=== PATIENT | female | born 2000 | race Caucasian/White ===

== ENCOUNTER 2023-09-13 15:55 | Emergency (ER) | payer OTHER, SELFPAY ==
[2023-09-13 15:58] VITALS: BP 143/78; PULSE 75; RESP 16; TEMP 36.3; O2SAT 100
[2023-09-13] MEDS: LACTATED RINGERS 1,000 ML 999 ML IV CONT (16:28)
[2023-09-13] MEDS: METOCLOPRAMIDE HCL INJ 10 MG/2 ML VIAL IV PUSH (16:28)
[2023-09-13] MEDS: diphenhydrAMINE HCl INJ 50 MG/ML VIAL 25 MG IV PUSH (16:28)
--- NOTE | 2023-09-13 16:31 | ED.NAVMDI ---
HPI - Nausea/Vomiting/Diarrhea General Chief complaint: Nausea/Vomiting/Diarrhea Stated complaint: N/V 6WKS PREG Time Seen by Provider: 09/13/23 16:05 History of Present Illness HPI Narrative: Patient was about 6 weeks by dates presents here with nausea vomiting, ongoing for last 2 weeks, she will have good days and bad days, she has no abdominal pain. Related Data Allergies Allergy/AdvReac Type Severity Reaction Status Date / Time No Known Allergies Allergy Verified 09/13/23 17:52 Review of Systems Review of Systems: CONST: No fever. HEENT: No sore throat C/V: No chest pain RESP: No cough GI: Reports Nausea vomiting : No dysuria. M/S: No joint pain. SKIN: No rash. NEURO: [No headache or focal numbness or weakness] PSYCH: [No depression] Exam Narrative: EXAMINATION OF ORGAN SYSTEMS/BODY AREAS: Constitutional: Vital signs per nursing GENERAL: holding emesis back and looking very sad HEAD: Normal with no signs of head trauma. EYES: EOMI, conjunctiva normal ENT: Hearing grossly intact LUNGS: Nonlabored breathing. HEART: [Regular rate and rhythm] ABD: [Soft], [nontender to palpation] EXT: Normal range of motion SKIN: [No rashes or lesions.] NEURO: [Alert and oriented x 3. No gross focal sensory or strength deficits.] PSYCH: cooperative answering questions appropriately Course Vital Signs Vital signs: Vital Signs Temperature 97.4 F L 09/13/23 15:58 Pulse Rate 75 09/13/23 15:58 Respiratory Rate 16 09/13/23 15:58 Blood Pressure 143/78 H 09/13/23 15:58 Pulse Oximetry 100 09/13/23 15:58 Oxygen Delivery Room Air 09/13/23 15:58 Temperature 97.4 F L 09/13/23 15:58 Pulse Rate 75 09/13/23 15:58 Respiratory Rate 16 09/13/23 15:58 Blood Pressure 143/78 H 09/13/23 15:58 Pulse Oximetry 100 09/13/23 15:58 Oxygen Delivery Room Air 09/13/23 15:58 MDM - Nausea/Vomiting/Diarrhea MDM Narrative Medical decision making narrative: patient at 6 weeks presents here with nausea vomiting, she has no abdominal pain or discharge or vaginal bleeding. Labs obtained consistent with dehydration, she does have a UA consistent with UTI, she is given a dose of ceftriaxone here, Reglan and Benadryl and IV fluids for her nausea vomiting, and on re-evaluation she states that she is feeling much better, she is tolerating p.o.. I do feel she is stable for discharge at this time, she has follow-up with her OBGYN as scheduled, I have low concern for ectopic without any abdominal pain or vaginal bleeding, she is given strict return precautions and she is agreeable to this. Antibiotics started. Lab Data 09/13/23 16:20 09/13/23 16:20 Labs: Lab Results 09/13/23 09/13/23 Range/Units 16:20 16:25 WBC 12.0 H (4.5-10.0) K/mm3 RBC 4.82 (4.2-5.4) M/mm3 Hgb 14.6 (12.0-15.0) g/dL Hct 42.3 (37.0-47.0) % MCV 87.8 (80-100) fl MCH 30.3 (26-34) pg MCHC 34.5 (32-36) g/dl RDW 12.8 (11.5-14.5) % Plt Count 305 (150-375) k/mm3 MPV 9.0 (7.4-10.4) fl Immature Gran % (Auto) 0.3 (0-0.5) % Neut % (Auto) 82.3 H (45.5-73.1) % Lymph % (Auto) 11.4 L (18.3-44.2) % [place] % (Auto) 5.8 (2.6-8.5) % Eos % (Auto) 0.1 (0-4.4) % Baso % (Auto) 0.1 L (0.2-1.2) % Lymph # (Auto) 1.36 (0.9-3.2) K/mm3 [place] # (Auto) 0.7 H (0.1-0.6) K/mm3 Eos # (Auto) 0.0 (0-0.3) K/mm3 Baso # (Auto) 0.0 (0.0-0.1) K/mm3 Abs Immat Gran (auto) 0.04 H (0.00-0.031) K/mm3 Absolute Neuts (auto) 9.8 H (1.3-6.7) K/mm3 Absolute Nucleated RBC 0.000 (0.0-0.012) K/mm3 Nucleated RBC % 0.0 (0.0-0.2) % Sodium 136 L (137-145) mmol/L Potassium 3.6 (3.4-5.0) mmol/L Chloride 105 (98-107) mmol/L Carbon Dioxide 17 L (22-30) mmol/L Anion Gap 14 H (4-12) mmol/L BUN 7 (7-17) mg/dL Creatinine 0.60 L (0.7-1.0) mg/dL Estim Creat Clear Calc 109 ml/min Estimated GFR > 60 (59 - )
[2023-09-13 17:00] LABS: Basophils Percent Auto 0.1 % (0.2-1.2); Eosinophils Percent Auto 0.1 % (0-4.4); Hematocrit 42.3 % (37.0-47.0); Hemoglobin 14.6 g/dL (12.0-15.0); Immature Granulocyte Absolute 0.04 K/mm3 (0.00-0.031); Immature Granulocyte Percent A 0.3 % (0-0.5); Lymphocytes Absolute Auto 1.36 K/mm3 (0.9-3.2); Lymphocytes Percent Auto 11.4 % (18.3-44.2); Mean Corpuscular HGB Conc 34.5 g/dl (32-36); Mean Corpuscular Hemoglobin 30.3 pg (26-34); Mean Corpuscular Volume 87.8 fl (80-100); Monocytes Absolute Auto 0.7 K/mm3 (0.1-0.6); Monocytes Percent Auto 5.8 % (2.6-8.5); Neutrophils Absolute Auto 9.8 K/mm3 (1.3-6.7); Neutrophils Percent Auto 82.3 % (45.5-73.1); Platelet Count Result 305 k/mm3 (150-375); Red Blood Count 4.82 M/mm3 (4.2-5.4); Red Cell Distribution Width 12.8 % (11.5-14.5)
[2023-09-13 17:12] LABS: Alanine Aminotransferase 28 U/L (6-35); Albumin Level 5.1 g/dL (3.5-5.1); Alkaline Phosphatase 62 U/L (38-126); Anion Gap 14 mmol/L (4-12); Aspartate Amino Transferase 29 U/L (14-36); Bilirubin,Total 1.1 mg/dL (0.2-1.3); Blood Urea Nitrogen 7 mg/dL (7-17); Calcium 10.8 mg/dL (8.4-10.2); Carbon Dioxide 17 mmol/L (22-30); Chloride 105 mmol/L (98-107); Estimated CRCL calculation 109 ml/min; Estimated Glomerular Filt Rate > 60; Glucose 131 mg/dL (65-110); Lipase 50 U/L (23-300); Potassium 3.6 mmol/L (3.4-5.0); Sodium 136 mmol/L (137-145)
[2023-09-13 17:25] LABS: Amorphous Sediment Urine Few; Appearance Urine Turbid (Clear); Bacteria Urine 4+ /hpf; Bilirubin Urine Negative (Negative); Blood Urine Negative (Negative); Color Urine Yellow (Yellow); Glucose Urine UA Negative (Negative); Ketones Urine 1+ mg/dL (Negative); Leukocyte Esterase Ur 2+ LEU/UL (Negative); Need Manual Microscopic Reviewed; Nitrate Urine Negative (Negative); Protein Urine Trace mg/dL (Negative); Specific Grav Ur 1.024 (1.001-1.035); Squamous Epithelial Cell Urine Many /hpf (Few); WBC Urine 21-50 /hpf (0-3)
[2023-09-13 17:30] LABS: Add Urine Microscopic? YES
[2023-09-13] MEDS: Please add drug allergy info to patient profile. 1 EACH XX (17:53)
[2023-09-13] MEDS: DEXTROSE 5%/0.9% SOD CHL 1,000 ML 999 ML IV CONT (18:05)
== END 2023-09-13 19:09 | disposition home or self-care (01) ==
PROVIDERS: Emergency Provider Emergency Medicine; PCP Obstetrics & Gynecology Gynecology
DX: O23.41 Unspecified infection of urinary tract in pregnancy, first trimester (principal); N39.0 Urinary tract infection, site not specified; Z3A.01 Less than 8 weeks gestation of pregnancy; O21.0 Mild hyperemesis gravidarum
CPT/HCPCS: 36415; 80053; 81001; 81025; 83690; 84702; 85025; 87086; 96361; 96365; 96375; 99284; J0696; J1200; J2765; J7042; J7120

== ENCOUNTER 2023-09-14 03:08 | Observation (INO) | payer OTHER, SELFPAY ==
[2023-09-14] VITALS (21 sets, daily range): BP systolic 103–151; BP diastolic 50–81; PULSE 56–77; RESP 16–18; TEMP 36.7–36.8; O2SAT 98–100; BMI 24.5
--- NOTE | ~2023-09-14 | US_ITS ---
EXAMINATION: US OB <=14 wk fetus w TV DATE: 09/14/2023 13:54 INDICATION: Dating of and confirmation of intrauterine TECHNIQUE: Real-time pelvic ultrasound utilizing both a transvaginal and transabdominal probe was pe rformed. The interpreting radiologist was not present for the study. COMPARISON: None. FINDINGS: The uterus measures 8.9 x 5.8 x 7.1 cm. There is an intrauterine gestational sac. A yolk sac and feta l pole are identified. The crown rump length measures 1.5 cm, which correlates with an estimated gest ational age of 7 weeks and 6 days. heart motion is identified measuring 169 beats per minute (b pm) by M-mode Doppler. The right ovary measures 3.0 x 1.9 x 2.4 cm. The left ovary measures 3.9 x 2.4 x 2.3 cm. Metastases f low identified in both ovaries on color Doppler. There is hyperemia at the periphery of a 2.0 cm thic k-walled, centrally anechoic corpus luteum cyst in the left ovary. There is no free fluid in the pelv is. IMPRESSION: 1. Single living fetus with heart rate of 169 bpm. 2. Gestational age by ultrasound of 7 weeks 6 day(s) +/- 5 day(s) with ultrasound estimated date of delivery (PAUL) of 12/25/2023. Reviewed, dictated and finalized at location B. IMPRESSION: 1. Single living fetus with heart rate of 169 bpm. 2. Gestational age by ultrasound of 7 weeks 6 day(s) +/- 5 day(s) with ultraso und estimated date of delivery (PAUL) of 12/25/2023.
--- NOTE | ~2023-09-14 | US_ITS ---
EXAMINATION: US right upper quadrant DATE: 09/14/2023 12:53 INDICATION: Nausea and vomiting. TECHNIQUE: Multiple grayscale and Doppler ultrasound images of the abdomen were obtained. COMPARISON: None FINDINGS: The visualized portions of the head, body, and tail the pancreas are normal. Abdominal aort a is normal in caliber. Inferior vena cava is normal. The liver is normal without focal lesion. There is antegrade flow in main portal vein. The gallbladder is normal in size and contains polyps measuri ng up to 4 mm, likely benign and needing no follow-up. No visible gallstones. No gallbladder wall thi ckening or sonographic [place] sign. The common duct is normal and measures 3 mm. IMPRESSION: 1. No etiology for the patient's symptoms. Reviewed, dictated and finalized at location A.
[2023-09-14] MEDS: SODIUM CHLORIDE 0.9% IV 1,000 ML 999 ML IV CONT (03:42)
[2023-09-14] MEDS: METOCLOPRAMIDE HCL INJ 10 MG/2 ML VIAL IV PUSH ×2 (03:43→05:23)
[2023-09-14] MEDS: diphenhydrAMINE HCl INJ 50 MG/ML VIAL 25 MG IV PUSH (03:43)
--- NOTE | 2023-09-14 03:43 | ED.GENADULT ---
HPI - General Adult General Chief complaint: Nausea/Vomiting/Diarrhea Stated complaint: vomiting Time Seen by Provider: 09/14/23 03:20 History of Present Illness HPI narrative: Patient is a 23-year-old female who presents emergency department with chief complaint of nausea and vomiting the patient reports she was seen in the emergency department earlier today diagnosed with UTI and also had multiple episodes of nausea vomiting patient received IV fluids antiemetics and received IV antibiotics. The patient is 6 weeks and is scheduled to see Dr. Samuel in the office Related Data Allergies Allergy/AdvReac Type Severity Reaction Status Date / Time No Known Allergies Allergy Verified 09/14/23 03:23 Review of Systems Review of Systems: A 10 system review of systems was completed on the patient and is negative except for what is stated in the HPI. Nursing and ancillary documentation was reviewed. Exam Narrative: GENERAL: Well-appearing, well-nourished, and in no acute distress. HEAD: Normocephalic, atraumatic. EYES: PERRLA and EOMI. ENT: Nares clear, no rhinorrhea or epistaxis. Mucous membranes moist. NECK: Supple. CHEST: Clear to auscultation. No respiratory distress. HEART: Regular rate and rhythm. No murmur heard. Normal peripheral pulses. ABDOMEN: Soft, nontender, nondistended, normal active bowel sounds. EXTREMITIES: Normal range of motion. No edema. SKIN: Warm, dry, no rash. NEURO: No focal deficits. Alert and oriented x3. PSYCH: Normal mood and affect. Course Vital Signs Vital signs: Vital Signs Temperature 36.7 C 09/14/23 03:11 Pulse Rate 61 09/14/23 03:11 Respiratory Rate 18 09/14/23 03:11 Blood Pressure 151/76 H 09/14/23 03:11 Pulse Oximetry 100 09/14/23 03:11 Oxygen Delivery Room Air 09/14/23 03:11 Temperature 36.7 C 09/14/23 03:11 Pulse Rate 61 09/14/23 03:11 Respiratory Rate 18 09/14/23 03:11 Blood Pressure 151/76 H 09/14/23 03:11 Pulse Oximetry 100 09/14/23 03:11 Oxygen Delivery Room Air 09/14/23 03:11 Medical Decision Making [facility] Narrative Medical decision making narrative: Differential diagnosis includes hyperemesis gravidarum, UTI, dehydration, electrolyte abnormality Laboratory studies were obtained on the patient showed a white count of 11.8 electrolytes showed a CO2 of 19 BUN was 5 creatinine 0.5 lactic acid was 1.4 magnesium was 2.0 quantitative hCG was 81,751 Patient received fluids in the emergency department and several doses of Reglan. The patient is still having some nausea and vomiting the case was discussed with Dr. Samuel with the patient's OBGYN the patient will be admitted for further care. Vital Signs Vital Signs: Vital Signs Temperature 36.7 C 09/14/23 03:11 Pulse Rate 61 09/14/23 03:11 Respiratory Rate 18 09/14/23 03:11 Blood Pressure 151/76 H 09/14/23 03:11 Pulse Oximetry 100 09/14/23 03:11 Oxygen Delivery Room Air 09/14/23 03:11 Temperature 36.7 C 09/14/23 03:11 Pulse Rate 61 09/14/23 03:11 Respiratory Rate 18 09/14/23 03:11 Blood Pressure 151/76 H 09/14/23 03:11 Pulse Oximetry 100 09/14/23 03:11 Oxygen Delivery Room Air 09/14/23 03:11 Lab Data 09/14/23 03:34 09/14/23 03:34 Labs: Lab Results 09/14/23 09/14/23 Range/Units 03:34 04:38 WBC 11.8 H (4.5-10.0) K/mm3 RBC 4.40 (4.2-5.4) M/mm3 Hgb 13.2 (12.0-15.0) g/dL Hct 38.2 (37.0-47.0) % MCV 86.8 (80-100) fl MCH 30.0 (26-34) pg MCHC 34.6 (32-36) g/dl RDW 12.8 (11.5-14.5) % Plt Count 297 (150-375) k/mm3 MPV 9.1 (7.4-10.4) fl Immature Gran % (Auto) 0.3 (0-0.5) % Neut % (Auto) 80.0 H (45.5-73.1) % Lymph % (Auto) 13.2 L (18.3-44.2) % [place] % (Auto) 6.3 (2.6-8.5) % Eos % (Auto) 0.0 (0-4.4) % Baso % (Auto) 0.2 (0.2-1.2) % Lymph # (Auto) 1.56 (0.9-3.2) K/mm3 [place] # (Auto) 0.8 H (0.1-0.6) K/mm3 Eos # (Auto
[2023-09-14] MEDS: MORPHINE SULFATE (*CRX) 4 MG/ML INJ IV PUSH (04:02)
[2023-09-14 04:35] LABS: Basophils Percent Auto 0.2 % (0.2-1.2); Hematocrit 38.2 % (37.0-47.0); Hemoglobin 13.2 g/dL (12.0-15.0); Immature Granulocyte Absolute 0.03 K/mm3 (0.00-0.031); Immature Granulocyte Percent A 0.3 % (0-0.5); Lymphocytes Absolute Auto 1.56 K/mm3 (0.9-3.2); Lymphocytes Percent Auto 13.2 % (18.3-44.2); Mean Corpuscular HGB Conc 34.6 g/dl (32-36); Mean Corpuscular Volume 86.8 fl (80-100); Mean Platelet Volume 9.1 fl (7.4-10.4); Monocytes Absolute Auto 0.8 K/mm3 (0.1-0.6); Monocytes Percent Auto 6.3 % (2.6-8.5); Neutrophils Absolute Auto 9.5 K/mm3 (1.3-6.7); Platelet Count Result 297 k/mm3 (150-375); Red Cell Distribution Width 12.8 % (11.5-14.5); White Blood Count 11.8 K/mm3 (4.5-10.0)
[2023-09-14 04:52] LABS: Lactic Acid Reflex 1.4 mmol/L (0.7-2.0)
[2023-09-14 04:54] LABS: Alanine Aminotransferase 25 U/L (6-35); Albumin Level 4.6 g/dL (3.5-5.1); Alkaline Phosphatase 59 U/L (38-126); Anion Gap 9 mmol/L (4-12); Aspartate Amino Transferase 26 U/L (14-36); Bilirubin,Total 1.1 mg/dL (0.2-1.3); Blood Urea Nitrogen 5 mg/dL (7-17); Calcium 10.2 mg/dL (8.4-10.2); Carbon Dioxide 19 mmol/L (22-30); Chloride 106 mmol/L (98-107); Estimated CRCL calculation 128 ml/min; Estimated Glomerular Filt Rate > 60; Glucose 122 mg/dL (65-110); Potassium 3.7 mmol/L (3.4-5.0); Sodium 134 mmol/L (137-145)
[2023-09-14] MEDS: DEXTROSE 5%/LACTATED RINGERS 1,000 ML 175 ML IV CONT (10:28)
[2023-09-14] MEDS: ONDANSETRON INJ 4 MG/2 ML VIAL IV PUSH ×2 (10:35→16:30)
[2023-09-14] MEDS: FAMOTIDINE 20 MG/2 ML VIAL IV PUSH (10:40)
--- NOTE | 2023-09-14 10:43 | OBADM ---
This patient, Lara Munguia, admitted to the OB room 115 for observation for hyperemesis. (Pt was in the ED and sent to room 348, but Dr. Leyva wanted pt on OB so she was transferred per wheelchair. Patient/family oriented to hospital policies and general routines including ID bracelet, bed and alarms, visiting hours, pain management, procedures, bathroom and other care routines, personal items, smoking policy, room service/diet, and visiting hours. Patient/Family are encouraged to report perceived risks to care and to ask questions if they do not understand what they are told or what they should do.
--- NOTE | 2023-09-14 11:46 | PC.NURSE ---
Dr. Leyva informed of pt's upper back pain that she received Morphine for in the ED. Massage seemed to help. Heat hasn't improved her pain- rates a 4 out 0f 10. No abdominal pain or tenderness.
--- NOTE | 2023-09-14 14:10 | PC.NURSE ---
Dr. Leyva informed of U/S reports. Pt was tolerating ice chips prior to going to U/S.
--- NOTE | 2023-09-14 14:24 | PC.NURSE ---
Pt voided while in U/S.
--- NOTE | 2023-09-14 14:24 | PC.NURSE ---
Pt has had another cup of ice chips, drank some water, and had most of a popcicle and jello.
[2023-09-14 16:56] LABS: Add Urine Microscopic? YES; Appearance Urine Clear (Clear); Bacteria Urine None Seen /hpf; Bilirubin Urine Negative (Negative); Blood Urine Negative (Negative); Color Urine Yellow (Yellow); Glucose Urine UA Negative (Negative); Ketones Urine Negative (Negative); Leukocyte Esterase Ur 1+ LEU/UL (Negative); Need Manual Microscopic Reviewed; Nitrate Urine Negative (Negative); Non Pathogenic Casts 0-2; Protein Urine Negative (Negative); RBC Urine 0-2 /hpf (0-2); Specific Grav Ur 1.006 (1.001-1.035); Squamous Epithelial Cell Urine None Seen /hpf (Few); Urobilinogen Urine 0.2 mg/dL (<2.0); WBC Urine 0-5 /hpf (0-3); pH Urine 7.5 (5.0-9.0)
--- NOTE | 2023-09-14 17:15 | PC.NURSE ---
Dr. Haydee Szymanski informed of UA results. Pt didn't feel like eating the mashed potatoes or grilled cheese she ordered, but ate a bag of popcorn without any nausea. Pt has been drinking well. When pt's mother went to hop picker her RX that was sent yesterday, the pharmacy stated nothing was transmitted. Pt states the Zofran we gave her today is working better than the Reglan she had in the ED. Orders received for discharge and sending RX for Zofran. Pt is not to take an antibiotic as she doesn't have a UTI.
--- NOTE | 2023-09-16 10:31 | PM.OBTRLD ---
OB - Triage/Final Diagnosis Visit Information Reason for evaluation: other ( hyperemesis gravidarum) Comments/Additional reasons for admission: I have assessed the risk for this patient, Lara Munguia, and determined that she would benefit from observation care. Evaluation Laboratory results: Laboratory Tests 09/14/23 09/14/23 09/14/23 03:34 04:38 15:36 WBC 11.8 H RBC 4.40 Hgb 13.2 Hct 38.2 MCV 86.8 MCH 30.0 MCHC 34.6 RDW 12.8 Plt Count 297 MPV 9.1 Immature Gran % (Auto) 0.3 Neut % (Auto) 80.0 H Lymph % (Auto) 13.2 L [place] % (Auto) 6.3 Eos % (Auto) 0.0 Baso % (Auto) 0.2 Lymph # (Auto) 1.56 [place] # (Auto) 0.8 H Eos # (Auto) 0.0 Baso # (Auto) 0.0 Abs Immat Gran (auto) 0.03 Absolute Neuts (auto) 9.5 H Absolute Nucleated RBC 0.000 Nucleated RBC % 0.0 Sodium 134 L Potassium 3.7 Chloride 106 Carbon Dioxide 19 L Anion Gap 9 BUN 5 L Creatinine 0.50 L Estim Creat Clear Calc 128 Estimated GFR > 60 Glucose 122 H Lactic Acid 1.4 Calcium 10.2 Magnesium 2.0 Total Bilirubin 1.1 AST 26 ALT 25 Alkaline Phosphatase 59 Total Protein 8.0 Albumin 4.6 Beta HCG, Quant 54636.00 Urine Color Yellow Urine Appearance Clear Urine pH 7.5 Ur Specific [place] 1.006 Urine Protein Negative Urine Glucose (UA) Negative Urine Ketones Negative Ur Blood (Man) Negative Urine Nitrate Negative Urine Bilirubin Negative Urine Urobilinogen 0.2 Add Ur Microanalysis Reviewed Leukocyte Esterase Rfl 1+ H Urine RBC 0-2 Urine WBC 0-5 Ur Squamous Epith Cells None seen Urine Bacteria None seen Urine Casts 0-2
== END 2023-09-14 18:01 | disposition home or self-care (01) ==
LOC: ANHED 06:02 → ANH3MED 09:28 → ANHOBPP 17:01 → ANH3MED 09-15 08:00 → ANH3MEDSUR 09-15 08:00 → ANHOBPP 09-15 08:00
PROVIDERS: Admitting Provider Obstetrics & Gynecology Gynecology; Emergency Provider Emergency Medicine; Visit Provider Obstetrics & Gynecology
DX: O21.0 Mild hyperemesis gravidarum (principal); O23.41 Unspecified infection of urinary tract in pregnancy, first trimester; Z3A.09 9 weeks gestation of pregnancy
CPT/HCPCS: 36415; 76705; 76801; 76817; 80053; 81001; 83605; 83735; 84702; 85025; 96361; 96374; 96375; 96376; 99285; G0378; J1200; J2270; J2405; J2765; J7030; J7121

== ENCOUNTER 2023-09-15 20:59 | Observation (INO) | payer OTHER, SELFPAY ==
[2023-09-15 21:10] VITALS: BP 135/77; PULSE 71; RESP 18; TEMP 36.7; O2SAT 100
[2023-09-15 22:55] VITALS: BP 138/67; PULSE 58; RESP 18; O2SAT 99
[2023-09-15 23:35] LABS: Basophils Percent Auto 0.1 % (0.2-1.2); Hematocrit 38.6 % (37.0-47.0); Hemoglobin 13.5 g/dL (12.0-15.0); Immature Granulocyte Absolute 0.04 K/mm3 (0.00-0.031); Immature Granulocyte Percent A 0.3 % (0-0.5); Lymphocytes Absolute Auto 1.03 K/mm3 (0.9-3.2); Lymphocytes Percent Auto 8.9 % (18.3-44.2); Mean Corpuscular Hemoglobin 30.2 pg (26-34); Mean Corpuscular Volume 86.4 fl (80-100); Mean Platelet Volume 8.9 fl (7.4-10.4); Monocytes Absolute Auto 0.5 K/mm3 (0.1-0.6); Monocytes Percent Auto 4.7 % (2.6-8.5); Neutrophils Absolute Auto 9.9 K/mm3 (1.3-6.7); Platelet Count Result 330 k/mm3 (150-375); Red Blood Count 4.47 M/mm3 (4.2-5.4); Red Cell Distribution Width 12.6 % (11.5-14.5); White Blood Count 11.5 K/mm3 (4.5-10.0)
--- NOTE | 2023-09-15 23:38 | ED.GENADULT ---
[facility] - General Adult General Chief complaint: Nausea/Vomiting/Diarrhea Stated complaint: nausea/vomiting Time Seen by Provider: 09/15/23 22:51 Source: patient Mode of arrival: ambulatory Limitations: no limitations History of Present Illness HPI narrative: This is a 23-year-old female who is approximately 8 weeks and who presents to the ED with chief complaint of nausea and vomiting intermittently for the past couple weeks. Reports that she was just seen here a couple of days ago and was initially admitted to the OB floor. Patient states that she started to feel better was discharged home. Today states the vomiting came back and has vomited 10 times today. Endorses back pain following the vomiting. Feels like the back pain goes from lower back up into the shoulders. Denies fevers, chills, abdominal pain, vaginal bleeding, vaginal discharge, dysuria, hematuria, flank pain, diarrhea, GI bleeding symptoms. Related Data Allergies Allergy/AdvReac Type Severity Reaction Status Date / Time No Known Allergies Allergy Verified 09/14/23 03:23 Review of Systems Review of Systems: All systems as dictated in [facility] Social History Social History Smoking status: Never smoker Second hand tobacco smoke exposure: No Exam Narrative: GENERAL: Well-appearing, well-nourished, and in no acute distress. HEAD: Normocephalic, atraumatic. EYES: PERRLA and EOMI. ENT: Nares clear, no rhinorrhea or epistaxis. Mucous membranes moist. Oropharynx without tonsillar hypertrophy exudate or other lesions. NECK: Supple. No adenopathy or masses. CHEST: No respiratory distress. Clear to auscultation. No wheezes rales or rhonchi HEART: Regular rate and rhythm. No murmur heard. Normal peripheral pulses. ABDOMEN: Soft, nontender, nondistended, normal active bowel sounds. Negative flank tenderness bilaterally MSK: Normal range of motion. No edema. SKIN: Warm, dry, no rash. NEURO: Alert and oriented x3. No focal deficits. PSYCH: Normal mood and affect. Course Vital Signs Vital signs: Vital Signs Temperature 98.1 F 09/15/23 21:10 Pulse Rate 71 09/15/23 21:10 Respiratory Rate 18 09/15/23 21:10 Blood Pressure 135/77 09/15/23 21:10 Pulse Oximetry 100 09/15/23 21:10 Oxygen Delivery Room Air 09/15/23 21:10 Temperature 98.1 F 09/15/23 21:10 Pulse Rate 58 L 09/15/23 22:55 Respiratory Rate 18 09/15/23 22:55 Blood Pressure 138/67 09/15/23 22:55 Pulse Oximetry 99 09/15/23 22:55 Oxygen Delivery Room Air 09/15/23 21:10 Medical Decision Making MDM Narrative Medical decision making narrative: This is a 23-year-old female who is approximately weeks and presents to the ED with chief complaint of nausea and vomiting. She was here 2 days ago for the same. Vitals are normal. Exam is overall intact. No evidence of acute abdomen. No flank tenderness. Lab work shows white count 11.5, consistent previous today. CMP revealing slightly low bicarb of 16 and elevated anion gap of 14. Potassium some low 3.3. Otherwise CMP is largely unremarkable. This is consistent with previous CMP 2 days ago. Symptoms and presentation are consistent with hyperemesis gravidarum. It appears that she is in some starvation ketosis. Beta hydroxybutyrate is elevated. Blood glucose normal. UA shows 4+ ketones but no evidence of infection. She was given normal saline, D5, antiemetics and pain medications. Discussed the case with Dr. Leyva (Ob) who recommends admitting the patient to the OB floor. Discussed the plan of admission for observation with the patient and she is understanding and agreeable. Patient will be admitted in stable condition Vital Signs Vital Signs: Vital Signs Temperature 98.1 F 09/15/23 21:10 Pulse Rate 71 09/15/23 21:10 Respiratory Rate 18 09/15/23 21:10 Blood Pressure 135/77 09/15/23 21:10 Pulse Oximetry 100 09/14
[2023-09-15 23:41] LABS: Appearance Urine Clear (Clear); Bacteria Urine None Seen /hpf; Bilirubin Urine Negative (Negative); Blood Urine Negative (Negative); Color Urine Yellow (Yellow); Glucose Urine UA Negative (Negative); Ketones Urine 4+ mg/dL (Negative); Leukocyte Esterase Ur Negative LEU/UL (Negative); Nitrate Urine Negative (Negative); Non Pathogenic Casts 0-2; Protein Urine Trace mg/dL (Negative); RBC Urine 0-2 /hpf (0-2); Specific Grav Ur 1.026 (1.001-1.035); Squamous Epithelial Cell Urine Few /hpf (Few); WBC Urine 0-5 /hpf (0-3)
[2023-09-15 23:47] LABS: Add Urine Microscopic? YES; Alanine Aminotransferase 29 U/L (6-35); Albumin Level 4.9 g/dL (3.5-5.1); Alkaline Phosphatase 53 U/L (38-126); Anion Gap 14 mmol/L (4-12); Aspartate Amino Transferase 24 U/L (14-36); Bilirubin,Total 1.1 mg/dL (0.2-1.3); Blood Urea Nitrogen 5 mg/dL (7-17); Calcium 10.3 mg/dL (8.4-10.2); Carbon Dioxide 16 mmol/L (22-30); Chloride 104 mmol/L (98-107); Estimated CRCL calculation 128 ml/min; Estimated Glomerular Filt Rate > 60; Glucose 117 mg/dL (65-110); Lipase 25 U/L (23-300); Potassium 3.3 mmol/L (3.4-5.0); Sodium 134 mmol/L (137-145)
[2023-09-16] VITALS (22 sets, daily range): BP systolic 98–133; BP diastolic 38–81; PULSE 54–106; RESP 16–18; TEMP 36.6–37.1; O2SAT 96–100; BMI 23.8
[2023-09-16 00:08] LABS: Phosphorus 3.1 mg/dL (2.5-4.5)
[2023-09-16] MEDS: SODIUM CHLORIDE 0.9% IV 1,000 ML 999 ML IV CONT ×2 (00:19)
[2023-09-16] MEDS: ACETAMINOPHEN 325 MG TABLET 650 MG PO (00:19)
[2023-09-16] MEDS: METOCLOPRAMIDE HCL INJ 10 MG/2 ML VIAL IV PUSH ×3 (00:19→11:54)
[2023-09-16] MEDS: PYRIDOXINE HCL 100 MG/ML VIAL (*SPC) 50 MG IV PUSH (00:19)
[2023-09-16 00:20] LABS: Beta-Hydroxybutyrate/Acetoacetate 1.28 mmol/L (0.02-0.27)
[2023-09-16] MEDS: DEXTROSE 5%/LACTATED RINGERS 1,000 ML 125 ML IV CONT ×2 (01:13→12:10)
[2023-09-16] MEDS: MORPHINE SULFATE (*CRX) 4 MG/ML INJ IV PUSH (01:13)
[2023-09-16] MEDS: DEXTROSE 5%/LACTATED RINGERS 1,000 ML 200 ML IV CONT ×2 (02:30→07:10)
--- NOTE | 2023-09-16 07:15 | PC.NURSE ---
Pt denies nausea at this time. No further emesis. Ice chips and water given
--- NOTE | 2023-09-16 07:26 | OBADM ---
This patient, Lara Munguia, admitted to the OB room 115 for observation. Patient/family oriented to hospital policies and general routines including ID bracelet, bed and alarms, visiting hours, pain management, procedures, bathroom and other care routines, personal items, smoking policy, room service/diet, and visiting hours. Patient/Family are encouraged to report perceived risks to care and to ask questions if they do not understand what they are told or what they should do.
[2023-09-16] MEDS: ACETAMINOPHEN 500 MG TABLET 1000 MG PO ×3 (08:57→21:04)
[2023-09-16] MEDS: FAMOTIDINE 20 MG/2 ML VIAL IV PUSH ×2 (08:58→21:01)
--- NOTE | 2023-09-16 09:01 | PC.NURSE ---
Dr. Leyva has been in to see pt and aware K+ is 3.3. Pt has had some of the ice chips and water. Still no nausea or emesis. Applesauce, jello, and apple juice given.
--- NOTE | 2023-09-16 09:41 | PM.IMHP ---
H&P: HPI History of Present Illness Date/Time: 09/16/23 09:41 Chief Complaint: hyperemesis Narrative: 23 yo at 8 1/7 wk with continued hyperemesis. Patient to ER for third time. After first time, reglan was not at pharmacy so had nothing to take at home. After second time, did Zofran and did well for about 24 hours after admit. Will do Reglan and Zofran iv until tolerating po. Then will change to po meds. Also complains of upper back pain. [facility] Social History Social History Smoking status: Never smoker Second hand tobacco smoke exposure: No Meds Home Medications and Allergies Home Medications Medication Instructions Recorded Confirmed Type ondansetron 4 mg disintegrating 4 mg PO Q6H PRN nausea and 09/14/23 09/16/23 Rx tablet vomiting #30 tabs citalopram 10 mg tablet 10 mg DAILY 09/16/23 09/16/23 History Allergies Allergy/AdvReac Type Severity Reaction Status Date / Time No Known Allergies Allergy Verified 09/14/23 03:23 Vital Signs Vital Signs - 24 hr 09/15/23 21:10 09/15/23 22:55 09/16/23 01:17 Temperature 98.1 F Pulse Rate 71 58 L 74 Respiratory Rate 18 18 18 Blood Pressure 135/77 138/67 128/67 Pulse Oximetry 100 99 99 Oxygen Delivery Room Air 09/16/23 02:25 09/16/23 07:14 09/16/23 07:16 Temperature Pulse Rate 71 58 L 59 L Respiratory Rate Blood Pressure 111/47 L 98/54 L 100/51 L Pulse Oximetry 100 Oxygen Delivery 09/16/23 07:19 09/16/23 07:24 09/16/23 05:00 Temperature Pulse Rate Respiratory Rate Blood Pressure Pulse Oximetry 100 100 Oxygen Delivery Room Air 09/16/23 07:14 Temperature 98.0 F Pulse Rate Respiratory Rate 16 Blood Pressure Pulse Oximetry Oxygen Delivery Exam Const: General: healthy appearing and alert Orientation/consciousness: patient oriented x3 Resp: Effort & Inspection: normal respiratory effort GI: GI Palp: Yes Soft to palpation, No Tenderness to palpation present (GI) and No Palpable mass present Neuro: General: patient oriented x3 H&P: Results Labs Labs: Short CBC 09/15/23 Range/Units 23:28 WBC 11.5 H (4.5-10.0) K/mm3 Hgb 13.5 (12.0-15.0) g/dL Hct 38.6 (37.0-47.0) % Plt Count 330 (150-375) k/mm3 BMP 09/15/23 23:28 Sodium 134 L Potassium 3.3 L Chloride 104 Carbon Dioxide 16 L BUN 5 L Creatinine 0.50 L Glucose 117 H Calcium 10.3 H Liver Function 09/15/23 Range/Units 23:28 Total Bilirubin 1.1 (0.2-1.3) mg/dL AST 24 (14-36) U/L ALT 29 (6-35) U/L Alkaline Phosphatase 53 (38-126) U/L Albumin 4.9 (3.5-5.1) g/dL Urine 09/15/23 Range/Units 23:28 Urine Color Yellow (Yellow) Urine Appearance Clear (Clear) Urine pH 7.0 (5.0-9.0) Ur Specific [place] 1.026 (1.001-1.035) Urine Protein Trace (Negative) mg/dL Urine Glucose (UA) Negative (Negative) mg/dL Assessment and Plan Assessment and plan (1) Hyperemesis gravidarum: Code(s): O21.0 - Mild hyperemesis gravidarum Status: Acute Assessment and Plan: Plan to continue IV hydration and reglan/ zofran. Slowly advance diet. Change to po meds when tolerating po. Electrolytes slightly off.
[2023-09-16] MEDS: ONDANSETRON INJ 4 MG/2 ML VIAL IV PUSH ×3 (09:49→21:01)
--- NOTE | 2023-09-16 10:00 | PC.NURSE ---
Pt has ate her applesauce and some of the jello; drank some juice. No nausea or emesis. Had pt order some scrambled eggs.
--- NOTE | 2023-09-16 11:18 | PC.NURSE ---
Dr. Leyva informed of pt's worsening upper back shoulder pain that only gets better with back and neck massage. Massage initially brought pt's pain down to a 3-4 out of 10, but back up to a 6. Pt still using heating pad and she was given a small hand held massager to use, but pain is worse again. OK to give Flexeril. Also informed MD I have orders for both D5LR at 125 and 200 ml/hr. Pt's initial urine this am was dark, but has become light yellow and clear now. OK to decrease rate to 125 ml/hr.
[2023-09-16] MEDS: CYCLOBENZAPRINE HCL 10 MG TABLET PO ×2 (11:53→19:05)
--- NOTE | 2023-09-16 11:53 | PC.NURSE ---
Pt states her back pain is a 10 now. When I questioned whether any pain could be worse than what she was feeling now, she stated she just can't get comfortable.
--- NOTE | 2023-09-16 14:30 | PC.NURSE ---
Pt states her back pain is back up to a 6 again. Back massage given and pt up to shower using shower chair to let the warm water run over her back and shoulders.
--- NOTE | 2023-09-16 15:30 | PC.NURSE ---
Pt out of shower. Still states back is about a 5 out of 10 for pain. Nausea down to a 1 out of 10. Pt has ate her applesauce and nibbling on a peanut butter and jelly crustable at present.
--- NOTE | 2023-09-16 15:30 | PC.NURSE ---
Pt states her back pain was down to a 2-3 while in the shower, but when she got out, the pain came back pretty quickly.
--- NOTE | 2023-09-16 17:31 | PC.NURSE ---
Pt declines ordering from the menu, but continues to nibble on her peanut butter and jelly crustable.
[2023-09-16] MEDS: METOCLOPRAMIDE HCL 10 MG TABLET PO ×2 (17:58→23:42)
[2023-09-16] MEDS: CITALOPRAM HYDROBROMIDE 10 MG TABLET PO (21:01)
--- NOTE | 2023-09-16 21:58 | PC.NURSE ---
RN called Dr. Leyva regarding patient status. Dr. Leyva aware patient has not had an emesis episode since midnight the night prior. Dr. Leyva gave orders to switch all medications to PO and see how patient tolerates that until the morning.
--- NOTE | 2023-09-17 00:49 | PC.NURSE ---
RN called Dr. Leyva to update about patient status. Patient had an episode of emesis and is complaining of pain 7/10 in her back. MD gave order to give patient [place] 10 PO for back pain.
--- NOTE | 2023-09-17 01:05 | PC.NURSE ---
Patient given saltine crackers.
--- NOTE | 2023-09-17 01:46 | PC.NURSE ---
Patient requests to shower.
[2023-09-17] MEDS: HYDROcodone/acetaminophen (*CRX) 10-325 MG TABLET 1 TAB PO (02:14)
[2023-09-17] MEDS: FAMOTIDINE 20 MG TABLET PO ×2 (03:04→09:19)
[2023-09-17] MEDS: CYCLOBENZAPRINE HCL 10 MG TABLET PO ×2 (03:04→10:48)
[2023-09-17] MEDS: ONDANSETRON HCL ODT 4 MG TABLET PO ×2 (03:05→09:19)
[2023-09-17] MEDS: ACETAMINOPHEN 500 MG TABLET 1000 MG PO (03:05)
[2023-09-17 03:08] VITALS: PULSE 81; O2SAT 100
[2023-09-17 03:09] VITALS: BP 121/73; PULSE 63
--- NOTE | 2023-09-17 04:09 | PC.NURSE ---
Pain reassessed at 0405. Patient states she is still having back pain but is now rating the pain a 4/10. Patient says the medication is helping and wants to try to rest.
[2023-09-17] MEDS: METOCLOPRAMIDE HCL 10 MG TABLET PO (09:19)
[2023-09-17 09:21] VITALS: BP 116/75; PULSE 81
[2023-09-17 09:22] VITALS: RESP 18; TEMP 37.2
--- NOTE | 2023-09-17 10:30 | PC.NURSE ---
Patient able to keep part of a muffin and some yogurt down this morning. PO hydrated with about 250ml of water, Tolerated well.
--- NOTE | 2023-09-17 11:15 | PM.OBPNVD ---
OB - PN: Subj Subjective Date/time seen: 09/17/23 11:15 Interval history: tolerating po meds and fluid/solids vomited x 1 last pm back pain better OB - PN: Obj Data Labs 09/15/23 23:28 09/15/23 23:28 OB - PN A/P Assessment and Plan (1) Hyperemesis gravidarum: Code(s): O21.0 - Mild hyperemesis gravidarum Status: Acute Assessment and Plan: dc on reglan and zofran flexeril for back pain Time Spent With Patient Time: Total time spent is greater than 50% in coordination of care (as documented) at patient's floor/unit and/or counseling patient: Exam Narrative: abd soft nt Const: General: comfortable and no acute distress
--- NOTE | 2023-09-23 13:27 | P.PNOB_ITS ---
OB - Triage/Final Diagnosis Visit Information Reason for evaluation: other (hyperemesis with dehydration) Comments/Additional reasons for admission: I have assessed the risk for this patient, Lara Munguia, and determined that she would benefit from observation care. Evaluation Laboratory results: Laboratory Tests 09/15/23 23:28 WBC 11.5 H RBC 4.47 Hgb 13.5 Hct 38.6 MCV 86.4 MCH 30.2 MCHC 35.0 RDW 12.6 Plt Count 330 MPV 8.9 Immature Gran % (Auto) 0.3 Neut % (Auto) 86.0 H Lymph % (Auto) 8.9 L [place] % (Auto) 4.7 Eos % (Auto) 0.0 Baso % (Auto) 0.1 L Lymph # (Auto) 1.03 [place] # (Auto) 0.5 Eos # (Auto) 0.0 Baso # (Auto) 0.0 Abs Immat Gran (auto) 0.04 H Absolute Neuts (auto) 9.9 H Absolute Nucleated RBC 0.000 Nucleated RBC % 0.0 Sodium 134 L Potassium 3.3 L Chloride 104 Carbon Dioxide 16 L Anion Gap 14 H BUN 5 L Creatinine 0.50 L Estim Creat Clear Calc 128 Estimated GFR > 60 Glucose 117 H Calcium 10.3 H Phosphorus 3.1 Magnesium 2.0 Total Bilirubin 1.1 AST 24 ALT 29 Alkaline Phosphatase 53 Total Protein 8.0 Albumin 4.9 Lipase 25 Beta-Hydroxybutyrate/Acetoacetate 1.28 H Beta HCG, Quant 64043.00 Urine Color Yellow Urine Appearance Clear Urine pH 7.0 Ur Specific [place] 1.026 Urine Protein Trace Urine Glucose (UA) Negative Urine Ketones 4+ H Ur Blood (Man) Negative Urine Nitrate Negative Urine Bilirubin Negative Urine Urobilinogen 1.0 Leukocyte Esterase Rfl Negative Urine RBC 0-2 Urine WBC 0-5 Ur Squamous Epith Cells Few Urine Bacteria None seen Urine Casts 0-2
== END 2023-09-17 10:49 | disposition home or self-care (01) ==
LOC: ANHED 09-16 01:49 → ANHOBPP 09-16 02:01
PROVIDERS: Admitting Provider Obstetrics & Gynecology Gynecology; Emergency Provider Physician Assistant; Visit Provider Obstetrics & Gynecology Gynecology
DX: O21.0 Mild hyperemesis gravidarum (principal); Z3A.09 9 weeks gestation of pregnancy; Z79.899 Other long term (current) drug therapy
CPT/HCPCS: 36415; 80053; 81001; 81025; 82010; 83690; 83735; 84100; 84702; 85025; 96361; 96374; 96375; 96376; 99285; A9270; G0378; J2270; J2405; J2765; J3415; J7030; J7121

== ENCOUNTER 2023-09-18 14:24 | Observation (INO) | payer OTHER, SELFPAY ==
[2023-09-18] VITALS (7 sets, daily range): BP systolic 120–141; BP diastolic 65–84; PULSE 58–82; RESP 18; TEMP 36.9; BMI 23.8
--- NOTE | 2023-09-18 14:45 | OBADM ---
This patient, Lara Munguia, admitted to the OB room OB Post 116 for observation. Patient/family oriented to hospital policies and general routines including ID bracelet, bed and alarms, visiting hours, pain management, procedures, bathroom and other care routines, personal items, smoking policy, room service/diet, and visiting hours. Patient/Family are encouraged to report perceived risks to care and to ask questions if they do not understand what they are told or what they should do.
[2023-09-18] MEDS: FAMOTIDINE 20 MG/2 ML VIAL IV PUSH (15:36)
[2023-09-18] MEDS: PROMETHAZINE HCL 25 MG SUPP.RECT RECTAL (15:36)
[2023-09-18] MEDS: DEXTROSE 5%/LACTATED RINGERS 1,000 ML 999 ML IV CONT (15:38)
[2023-09-18] MEDS: DEXTROSE 5%/LACTATED RINGERS 1,000 ML 200 ML IV CONT ×2 (16:52→22:06)
[2023-09-18] MEDS: ACETAMINOPHEN 500 MG TABLET 1000 MG PO (16:53)
--- NOTE | 2023-09-18 18:28 | PC.NURSE ---
Dr Leyva notified of nausea and increase in vomiting over the last hour. Orders received.
[2023-09-18 18:43] LABS: Appearance Urine Clear (Clear); Bilirubin Urine Negative (Negative); Blood Urine Negative (Negative); Color Urine Yellow (Yellow); Glucose Urine UA 3+ mg/dL (Negative); Ketones Urine 4+ mg/dL (Negative); Leukocyte Esterase Ur Negative LEU/UL (Negative); Nitrate Urine Negative (Negative); Protein Urine Negative (Negative); Specific Grav Ur 1.024 (1.001-1.035); Urobilinogen Urine 0.2 mg/dL (<2.0); pH Urine 7.5 (5.0-9.0)
[2023-09-18 18:44] LABS: Add Urine Microscopic? NO
[2023-09-18] MEDS: ONDANSETRON INJ 4 MG/2 ML VIAL IV PUSH (18:46)
[2023-09-18] MEDS: PROCHLORPERAZINE EDISYLATE 10 MG/2 ML VIAL IM (21:28)
[2023-09-18] MEDS: hydrOXYzine HCL 25 MG TABLET PO (22:05)
--- NOTE | 2023-09-18 22:27 | PC.NURSE ---
[id number]- pt requesting medication to help her sleep. Dr. Leyva called and orders received for hydroxyzine.
[2023-09-19] MEDS: DEXTROSE 5%/LACTATED RINGERS 1,000 ML 200 ML IV CONT ×2 (03:07→08:29)
[2023-09-19] MEDS: FAMOTIDINE 20 MG/2 ML VIAL IV PUSH (05:29)
[2023-09-19 05:34] VITALS: BP 109/54; PULSE 61; RESP 18; TEMP 36.9
--- NOTE | 2023-09-19 05:51 | PC.NURSE ---
pt refusing compazine at this time and would like to see if another route would be possible. pt states that she is not feeling nauseous. Dayshift nurse to discuss with MD. Pt currently eating applesauce.
--- NOTE | 2023-09-19 06:25 | PC.NURSE ---
[id number]- called for update on this pt. updated on pts request to change compazine to PO. Orders received.
[2023-09-19] MEDS: PROCHLORPERAZINE MALEATE 5 MG TABLET 10 MG PO (06:43)
[2023-09-19 06:45] VITALS: BP 128/68; RESP 18; TEMP 36.3
[2023-09-19 06:46] VITALS: BP 128/68; PULSE 56
[2023-09-19] MEDS: ACETAMINOPHEN 500 MG TABLET 1000 MG PO (06:59)
--- NOTE | 2023-09-19 07:26 | PC.NURSE ---
Pt would like to get in the shower, IV saline locked and covered. Towels and washclothes provided, pt told to call out when out of the shower so IV fluids can be restarted, verbalizes understanding.
--- NOTE | 2023-09-19 07:45 | PC.NURSE ---
Pt out of the shower, IV fluids restarted.
--- NOTE | 2023-09-19 09:14 | WPDHPUPDATE1 ---
History and Physical Update Update Date/Time: 09/19/23 09:14 History and Physical has been reviewed, including an updated exam of the patient. There are changes in the patient's condition. Patient returned with nausea and vomiting yesterday. She had been taking her Zofran and Reglan on the schedule. She did not tolerate p.o. intake at home and return for significant vomiting. Patient has been IV hydrated and given IV Zofran. She was given Phenergan suppository without relief. She was then switched to Compazine IM and now p.o.. She states her nausea is improved. She will attempt fluids and bland diet through early this afternoon and if tolerated will discharge home with the new medications.
--- NOTE | 2023-09-23 13:28 | PM.OBTRLD ---
OB - Triage/Final Diagnosis Visit Information Reason for evaluation: other (hyperemesis with dehydration) Comments/Additional reasons for admission: I have assessed the risk for this patient, Lara Gama Nilda, and determined that she would benefit from observation care. Evaluation Laboratory results: Laboratory Tests 09/18/23 18:19 Urine Color Yellow Urine Appearance Clear Urine pH 7.5 Ur Specific [place] 1.024 Urine Protein Negative Urine Glucose (UA) 3+ H Urine Ketones 4+ H Ur Blood (Man) Negative Urine Nitrate Negative Urine Bilirubin Negative Urine Urobilinogen 0.2 Ur Leukocyte Esterase Negative
== END 2023-09-19 12:41 | disposition home or self-care (01) ==
PROVIDERS: Admitting Provider Obstetrics & Gynecology Gynecology; Visit Provider Obstetrics & Gynecology Gynecology
DX: O21.1 Hyperemesis gravidarum with metabolic disturbance (principal); Z3A.09 9 weeks gestation of pregnancy
CPT/HCPCS: 81003; 96361; 96372; 96374; 96375; A9270; G0378; G0379; J0780; J2405; J7121

== ENCOUNTER 2023-11-25 10:09 | Outpatient (CLI) | payer OTHER, MEDICAID, SELFPAY ==
--- NOTE | ~2023-11-25 | US_ITS ---
LIMITED AND MATERNAL ULTRASOUND (Doppler ultrasound interrogation techniques used as needed for this exam.) Ordering provider: Any Garduno CNM History: . Anatomy screen . Comparison: None. FINDINGS: : presentation: Breech. Placenta: Anterior. Distance from the cervix is 2.4 cm. Previa: No BIOMETRICS: BPD: 40.2 mm for an estimated gestational age of 18 weeks 1 day HC: 147.8 mm for an estimated gestational age of 17 weeks 6 days. AC: 126.8 mm for an estimated gestational age of 18 weeks 2 days FL: 28 mm for an estimated gestational age of 18 weeks 4 days Single intrauterine fetus with heart rate measured at 147 bmp which is within normal limits. Limited evaluation of anatomy shows no gross abnormality. The structures visualized were as follows: Stomach, kidneys, bladder, four chamber heart. Overall average gestational age based on biometrics is 18 weeks and 2 days with an estimated date of confinement of April 25, 2024 Extrapolated weight is 8 ounces. based on estimated gestational age. KIRT within normal limits. Cervical length is 4.1 cm which is within normal limits. IMPRESSION: Unremarkable limited and maternal ultrasound. Reviewed, dictated and finalized at location A.
== END 2023-11-25 10:10 ==
LOC: MICIMG 10:12
PROVIDERS: PCP Advanced Practice Midwife; Visit Provider Advanced Practice Midwife
DX: Z36.9 Encounter for antenatal screening, unspecified (principal); Z3A.00 Weeks of gestation of pregnancy not specified
CPT/HCPCS: 76805

== ENCOUNTER 2023-12-23 13:47 | Outpatient (CLI) | payer OTHER, MEDICAID, SELFPAY ==
--- NOTE | ~2023-12-23 | US_ITS ---
US OB limited 12/23/2023 14:06 Indication: Low-lying placenta Procedure: High-resolution Limited obstetrical ultrasound Comparison: 11/25/2023 Findings: There is a single living intrauterine in breech presentation. heart rate is 137 BPM. Placenta is anterior and measures 5 cm to the cervix. Cervical length is 3 cm. Amniotic flu id volume is subjectively normal. Impression: 1: Anterior placenta without previa. Placental margin measures 5 cm to the cervix. Reviewed, dictated and finalized at location B. Impression: 1: Anterior placenta without previa. Placental margin measures 5 cm to the cerv ix.
== END 2023-12-23 13:48 ==
LOC: MICIMG 13:49
PROVIDERS: PCP Obstetrics & Gynecology Gynecology; Visit Provider Obstetrics & Gynecology Gynecology
DX: O44.40 Low lying placenta NOS or without hemorrhage, unspecified trimester (principal); Z3A.00 Weeks of gestation of pregnancy not specified
CPT/HCPCS: 76815

== ENCOUNTER 2024-02-03 14:11 | Outpatient (CLI) | payer OTHER, MEDICAID, SELFPAY ==
[2024-02-03 14:55] LABS: Hematocrit 35.2 % (37.0-47.0); Hemoglobin 11.5 g/dL (12.0-15.0); Mean Corpuscular HGB Conc 32.7 g/dl (32-36); Mean Corpuscular Hemoglobin 29.6 pg (26-34); Mean Corpuscular Volume 90.5 fl (80-100); Mean Platelet Volume 9.1 fl (7.4-10.4); Platelet Count Result 324 k/mm3 (150-375); Red Blood Count 3.89 M/mm3 (4.2-5.4); Red Cell Distribution Width 12.8 % (11.5-14.5); White Blood Count 10.8 K/mm3 (4.5-10.0)
[2024-02-03 15:21] LABS: Alanine Aminotransferase 16 U/L (6-35); Albumin Level 3.7 g/dL (3.5-5.1); Alkaline Phosphatase 73 U/L (38-126); Anion Gap 11 mmol/L (4-12); Aspartate Amino Transferase 17 U/L (14-36); Bilirubin,Total 0.3 mg/dL (0.2-1.3); Blood Urea Nitrogen 6 mg/dL (7-17); Calcium 9.1 mg/dL (8.4-10.2); Carbon Dioxide 19 mmol/L (22-30); Chloride 104 mmol/L (98-107); Estimated Glomerular Filt Rate > 60; Glucose 118 mg/dL (65-110); Potassium 3.9 mmol/L (3.4-5.0); Sodium 134 mmol/L (137-145)
== END 2024-02-03 14:12 | disposition home or self-care (01) ==
LOC: ANHLAB 14:15
PROVIDERS: PCP Obstetrics & Gynecology Gynecology; Visit Provider Advanced Practice Midwife
DX: O99.891 Other specified diseases and conditions complicating pregnancy (principal); Z3A.00 Weeks of gestation of pregnancy not specified
CPT/HCPCS: 36415; 80053; 84550; 85027

== ENCOUNTER 2024-02-06 18:45 | Outpatient (CLI) | payer OTHER, MEDICAID, SELFPAY ==
[2024-02-06 19:16] VITALS: BMI 29.2
[2024-02-06 19:27] VITALS: BP 133/72; PULSE 92
[2024-02-06 19:30] VITALS: BP 121/75; PULSE 82
[2024-02-06 19:30] LABS: Basophils Percent Auto 0.1 % (0.2-1.2); Eosinophils Absolute Auto 0.1 K/mm3 (0-0.3); Eosinophils Percent Auto 0.9 % (0-4.4); Hematocrit 33.7 % (37.0-47.0); Hemoglobin 11.3 g/dL (12.0-15.0); Immature Granulocyte Absolute 0.14 K/mm3 (0.00-0.031); Immature Granulocyte Percent A 1.3 % (0-0.5); Lymphocytes Absolute Auto 1.64 K/mm3 (0.9-3.2); Lymphocytes Percent Auto 15.6 % (18.3-44.2); Mean Corpuscular HGB Conc 33.5 g/dl (32-36); Mean Corpuscular Hemoglobin 29.8 pg (26-34); Mean Corpuscular Volume 88.9 fl (80-100); Mean Platelet Volume 9.1 fl (7.4-10.4); Monocytes Percent Auto 9.8 % (2.6-8.5); Neutrophils Absolute Auto 7.6 K/mm3 (1.3-6.7); Neutrophils Percent Auto 72.3 % (45.5-73.1); Platelet Count Result 321 k/mm3 (150-375); Red Blood Count 3.79 M/mm3 (4.2-5.4); Red Cell Distribution Width 12.7 % (11.5-14.5); White Blood Count 10.5 K/mm3 (4.5-10.0)
[2024-02-06 19:37] LABS: Creatinine Urine 64.7 mg/dL; Total Protein Urine Random 10 mg/dL; Ur Ttl Prot Creatinine Ratio 0.15 mg/mg (0-0.20)
[2024-02-06 19:40] LABS: Bacteria Urine 1+ /hpf; Non Pathogenic Casts 0-2; RBC Urine 0-2 /hpf (0-2); Squamous Epithelial Cell Urine Moderate /hpf (Few)
[2024-02-06 19:42] LABS: Alanine Aminotransferase 16 U/L (6-35); Albumin Level 3.7 g/dL (3.5-5.1); Alkaline Phosphatase 74 U/L (38-126); Anion Gap 10 mmol/L (4-12); Aspartate Amino Transferase 18 U/L (14-36); Bilirubin,Total 0.4 mg/dL (0.2-1.3); Blood Urea Nitrogen 9 mg/dL (7-17); Calcium 9.5 mg/dL (8.4-10.2); Carbon Dioxide 20 mmol/L (22-30); Chloride 103 mmol/L (98-107); Estimated CRCL calculation 127 ml/min; Estimated Glomerular Filt Rate > 60; Glucose 118 mg/dL (65-110); Potassium 3.9 mmol/L (3.4-5.0); Sodium 133 mmol/L (137-145); Uric Acid 4.8 mg/dL (2.5-7.5)
[2024-02-06 19:43] LABS: Appearance Urine Sl Cloudy (Clear); Color Urine Yellow (Yellow)
[2024-02-06 19:44] LABS: Glucose Urine UA Negative (Negative); Protein Urine Negative (Negative); Specific Grav Ur 1.015 (1.001-1.035); pH Urine 6.5 (5.0-9.0)
[2024-02-06 19:45] LABS: Bilirubin Urine Negative (Negative); Blood Urine Trace-intact (Negative); Ketones Urine Negative (Negative); Nitrate Urine Negative (Negative); Urobilinogen Urine 0.2 mg/dL (<2.0)
[2024-02-06 19:46] LABS: Add Urine Microscopic? YES; Leukocyte Esterase Ur Trace LEU/UL (Negative)
[2024-02-06 20:00] VITALS: BP 124/59; PULSE 72
--- NOTE | 2024-02-06 20:09 | PC.NURSE ---
Call placed to Roselyn SEWELL pt c/o high bp @ home reported. Labs, FHR, CTX, BPs reported. Order to discharge pt home. Pt to continue 24 hr urine, take BP twice a day and Call office with BPs on Tuesday.
--- NOTE | 2024-02-06 20:26 | PC.NURSE ---
Pt discharged home undelivered in stable condition per telephone order from Nina SALCEDO. Discharge instructions explained. Handouts given. Pt denies any questions to concerns @ this time. Pt ambulated out of department with all belongings, S.O @ side.
== END 2024-02-06 20:26 | disposition home or self-care (01) ==
LOC: ANHOBOP 18:55 → ANHOBPP 18:57
PROVIDERS: Advanced Practice Midwife; PCP Obstetrics & Gynecology Gynecology; Visit Provider Obstetrics & Gynecology Gynecology
DX: O13.9 Gestational [pregnancy-induced] hypertension without significant proteinuria, unspecified trimester (principal); Z3A.00 Weeks of gestation of pregnancy not specified
CPT/HCPCS: 36415; 59025; 80053; 81001; 81050; 82570; 84156; 84550; 85025; 87086; 87088; 99199

== ENCOUNTER 2024-02-07 10:46 | Outpatient (CLI) | payer OTHER, MEDICAID, SELFPAY ==
[2024-02-07 11:52] LABS: Total Protein Urine Random 13 mg/dL
[2024-02-07 12:14] LABS: Total Protein Urine 24 Hr 188 mg/24hr (28-141); Total Volume 24 Hour Urine 1450 ml
== END 2024-02-07 10:47 | disposition home or self-care (01) ==
PROVIDERS: PCP Obstetrics & Gynecology Gynecology; Visit Provider Obstetrics & Gynecology Gynecology
DX: O99.891 Other specified diseases and conditions complicating pregnancy (principal); Z3A.00 Weeks of gestation of pregnancy not specified
CPT/HCPCS: 81050; 84156

== ENCOUNTER 2024-03-05 12:36 | Outpatient (CLI) | payer OTHER, MEDICAID, SELFPAY ==
[2024-03-05 13:12] LABS: Hematocrit 33.1 % (37.0-47.0); Hemoglobin 10.8 g/dL (12.0-15.0); Mean Corpuscular HGB Conc 32.6 g/dl (32-36); Mean Corpuscular Hemoglobin 28.9 pg (26-34); Mean Corpuscular Volume 88.5 fl (80-100); Platelet Count Result 299 k/mm3 (150-375); Red Blood Count 3.74 M/mm3 (4.2-5.4); Red Cell Distribution Width 13.1 % (11.5-14.5); White Blood Count 10.6 K/mm3 (4.5-10.0)
[2024-03-05 13:23] LABS: Alanine Aminotransferase 15 U/L (6-35); Albumin Level 3.6 g/dL (3.5-5.1); Alkaline Phosphatase 110 U/L (38-126); Anion Gap 6 mmol/L (4-12); Aspartate Amino Transferase 18 U/L (14-36); Bilirubin,Total 0.6 mg/dL (0.2-1.3); Blood Urea Nitrogen 6 mg/dL (7-17); Calcium 8.8 mg/dL (8.4-10.2); Carbon Dioxide 22 mmol/L (22-30); Chloride 105 mmol/L (98-107); Estimated Glomerular Filt Rate > 60; Glucose 101 mg/dL (65-110); Potassium 3.8 mmol/L (3.4-5.0); Sodium 133 mmol/L (137-145); Uric Acid 4.5 mg/dL (2.5-7.5)
== END 2024-03-05 12:37 | disposition home or self-care (01) ==
PROVIDERS: PCP Obstetrics & Gynecology Gynecology; Visit Provider Advanced Practice Midwife
DX: O13.3 Gestational [pregnancy-induced] hypertension without significant proteinuria, third trimester (principal); Z3A.00 Weeks of gestation of pregnancy not specified
CPT/HCPCS: 36415; 80053; 81050; 84156; 84550; 85027

== ENCOUNTER 2024-03-06 12:40 | Outpatient (CLI) | payer OTHER, MEDICAID, SELFPAY ==
--- NOTE | ~2024-03-06 | US_ITS ---
EXAMINATION: US OB follow up DATE: 03/06/2024 13:02 INDICATION: Expected size less than expected for estimated gestational age TECHNIQUE: Real-time ultrasound of the pelvis was performed. The interpreting radiologist was not pre sent for the study. COMPARISON: 12/23/2023 and 09/14/2023 FINDINGS: There is a single living fetus in vertex presentation. The placenta is anterior and not low-lying. F etal heart rate is 126 beats per minute (bpm). The amniotic fluid index is 12.0 cm, which is normal (5th%-95%: 8.6-24.2 cm at 32 weeks estimated gestational age). The following biometric data were obtained: BPD: 8.2 cm -> 35 weeks 0 days Head circumference: 30.2 cm -> 33 weeks 4 days Abdominal circumference: 27.3 cm -> 31 weeks 3 days Femur length: 5.8 cm -> 30 weeks 1 days The femur length to head circumference and biparietal diameter ratio cervical below the normal range. Head circumference to abdominal circumference ratio: 1.11 (normal range 0.96-1.14). Estimated weight: 1747 g (+/-) 262 g or 3 lbs. 14 oz. (+/-) 9 oz. IMPRESSION: 1. Single living fetus in vertex presentation with heart rate of 126 bpm. 2. Normal amniotic fluid index of 12.0 cm. 3. Estimated weight is 9th percentile by Hadlock criteria when 04/26/2024 is used as the estima mariel date of delivery (PAUL). Please correlate with clinical information or earlier ultrasounds for mos t accurate PAUL. 4. Discordant biometric data with the femur length to biparietal diameter ratio and femoral length to head circumference ratio both below the normal range. Reviewed, dictated and finalized at location A. IMPRESSION: 1. Single living fetus in vertex presentation with heart rate of 126 bpm. 2. Normal amniotic fluid index of 12.0 cm. 3. Estimated weight is 9th percentile by Hadlock criteria when 04/26/2024 is used as the estimated date of delivery (PAUL). Please correlate with clinica l information or earlier ultrasounds for most accurate PAUL. 4. Discordant biometric data with the femur length to biparietal diameter ratio and femoral length to head circumference ratio both below the normal range.
== END 2024-03-06 12:41 | disposition home or self-care (01) ==
LOC: MICIMG 12:40
PROVIDERS: PCP Obstetrics & Gynecology Gynecology; Visit Provider Advanced Practice Midwife
DX: O36.5930 Maternal care for other known or suspected poor fetal growth, third trimester, not applicable or unspecified (principal)
CPT/HCPCS: 76816

== ENCOUNTER 2024-03-06 13:08 | Outpatient (CLI) | payer OTHER, MEDICAID, SELFPAY ==
[2024-03-06 13:52] LABS: Total Volume 24 Hour Urine 1600 ml
[2024-03-06 14:21] LABS: Total Protein Urine 24 Hr 112 mg/24hr (28-141); Total Protein Urine Random 7 mg/dL
== END 2024-03-06 13:09 | disposition home or self-care (01) ==
PROVIDERS: PCP Obstetrics & Gynecology Gynecology; Visit Provider Advanced Practice Midwife
DX: O13.3 Gestational [pregnancy-induced] hypertension without significant proteinuria, third trimester (principal)
CPT/HCPCS: 81050; 84156

== ENCOUNTER 2024-03-15 14:44 | Outpatient (CLI) | payer OTHER, MEDICAID, SELFPAY ==
--- NOTE | ~2024-03-15 | US_ITS ---
EXAMINATION: 1. US OB follow up 2. US OB velocimetry umbilcal art DATE: 03/15/2024 15:13 INDICATION: Gestational hypertension. Third trimester. TECHNIQUE: Real-time ultrasound of the pelvis was performed. COMPARISON: Ultrasound 03/06/2024 FINDINGS: There is a single living fetus in vertex presentation. The placenta is anterior. heart rate is 133 beats per minute (bpm). The amniotic fluid index is 16.1 cm, which is normal. The following biometric data were obtained: Biparietal diameter (BPD): 8.4 cm; head circumference (HC): 30.8 cm; abdominal circumference (AC): 28 .5 cm; femur length (FL): 6.0 cm. These measurements are discordant with low FL/BPD. Estimated weight is 1962 g +/- 294 g, which correlates with the 9th percentile when 04/26/24 is used as estimated date of delivery. As single measurements, these parameters are each equal to the following estimated gestational ages: BPD: 34 weeks 0 days. HC: 34 weeks 2 days. AC: 32 weeks 4 days. FL: 31 weeks 0 days. estimated gestational age based solely on measurements from this exam is 33 weeks 0 days +/- 2 weeks 2 days. Umbilical artery pulsed Doppler demonstrates a peak systolic to end-diastolic velocity ratio (S/D rat io) of 2.5 (5th percentile = 2.07, 95th percentile = 3.53). IMPRESSION: 1. Single living fetus in vertex presentation. 2. Small for gestational age. Estimated weight is 1962 g +/- 294 g, which correlates with the 9th percentile when 04/26/24 is used as estimated date of delivery. 3. Discordant biometrics with low FL/BPD ratio. 4. Normal umbilical artery Doppler. Reviewed, dictated and finalized at location A. IMPRESSION: 1. Single living fetus in vertex presentation. 2. Small for gestational age. Estimated weight is 1962 g +/- 294 g, whic h correlates with the 9th percentile when 04/26/24 is used as estimated date of delivery. 3. Discordant biometrics with low FL/BPD ratio. 4. Normal umbilical artery Doppler.
== END 2024-03-15 14:45 | disposition home or self-care (01) ==
PROVIDERS: PCP Advanced Practice Midwife; Visit Provider Advanced Practice Midwife
DX: O36.5930 Maternal care for other known or suspected poor fetal growth, third trimester, not applicable or unspecified (principal); Z3A.33 33 weeks gestation of pregnancy
CPT/HCPCS: 76816; 76820

== ENCOUNTER 2024-03-19 14:08 | Observation (INO) | payer OTHER, MEDICAID, SELFPAY ==
--- NOTE | ~2024-03-19 | US_ITS ---
LIMITED OBSTETRIC ULTRASOUND/BIOPHYSICAL PROFILE Ordering provider: Any Garduno CNM History: . variable decels, BPP KIRT please . Comparison: None. FINDINGS: MATERNAL CERVIX: Not visualized. cm which is normal (normal is equal to or greater than 3.0 cm). PRESENTATION: Vertex Longitudinal lie PLACENTAL LOCATION: Anterior. No previa. HEART RATE: 131 bpm (normal is between 110 to 160 bpm). AMNIOTIC FLUID INDEX: 12.25 cm. 5th percentile is 8.1 cm. 95th percentile is 24.8 cm. Largest vertic al pocket is 5.5 cm. normal (KIRT between 5-25 cm in from 20-35 weeks gestation is considered normal). OTHER: Maternal ovaries not visualized. SCORE: breathing movements: 2 movements: 2 tone: 2 Amniotic fluid volume: 2 Total: 8 IMPRESSION: Normal biophysical profile. Reviewed, dictated and finalized at location A. IMPRESSION: Normal biophysical profile.
--- NOTE | 2024-03-24 10:49 | PM.OBTRLD ---
OB - Triage/Final Diagnosis Visit Information Reason for evaluation: other ( decelerations) Comments/Additional reasons for admission: I have assessed the risk for this patient, Lara Munguia, and determined that she would benefit from observation care.
== END 2024-03-19 17:11 | disposition home or self-care (01) ==
LOC: ANHOBPP 14:09
PROVIDERS: Admitting Provider Obstetrics & Gynecology Gynecology; Visit Provider Obstetrics & Gynecology Gynecology
DX: O36.8330 Maternal care for abnormalities of the fetal heart rate or rhythm, third trimester, not applicable or unspecified (principal); Z3A.34 34 weeks gestation of pregnancy
CPT/HCPCS: 76815; 76819; G0378; G0379

== ENCOUNTER 2024-03-22 11:09 | Outpatient (CLI) | payer OTHER, MEDICAID, SELFPAY ==
--- NOTE | ~2024-03-22 | US_ITS ---
EXAMINATION: 1. US OB follow up 2. US OB velocimetry umbilcal art DATE: 03/22/2024 11:39 INDICATION: Size less than dates. TECHNIQUE: Real-time ultrasound of the pelvis was performed. COMPARISON: Ultrasound 03/19/2024, 09/14/2023 FINDINGS: There is a single living fetus in vertex presentation. The placenta is anterior. heart rate is 133 beats per minute (bpm). The amniotic fluid index is 12.8 cm, which is normal. The following biometric data were obtained: Biparietal diameter (BPD): 8.6 cm; head circumference (HC): 31.1 cm; abdominal circumference (AC): 29 .3 cm; femur length (FL): 6.2 cm. These measurements are concordant. Estimated weight is 2147 g +/- 322 g, which correlates with the 9th percentile when 04/26/24 is used as estimated date of delivery. As single measurements, these parameters are each equal to the following estimated gestational ages: BPD: 34 weeks 4 days. HC: 34 weeks 6 days. AC: 33 weeks 2 days. FL: 32 weeks 1 days. estimated gestational age based solely on measurements from this exam is 33 weeks 5 days +/- 2 weeks 3 days. Umbilical artery pulsed Doppler demonstrates a peak systolic to end-diastolic velocity ratio (S/D rat io) of 2.8 (5th percentile = 2.03, 95th percentile = 3.4). IMPRESSION: 1. Single living fetus in vertex presentation. 2. Small for gestational age. Estimated weight is 2147 g +/- 322 g, which correlates with the 9th percentile when 04/26/24 is used as estimated date of delivery. This date was set by ultrasound o n 09/14/2023. 3. Normal umbilical artery Doppler. Reviewed, dictated and finalized at location A. IMPRESSION: 1. Single living fetus in vertex presentation. 2. Small for gestational age. Estimated weight is 2147 g +/- 322 g, whic h correlates with the 9th percentile when 04/26/24 is used as estimated date of delivery. This date was set by ultrasound on 09/14/2023. 3. Normal umbilical artery Doppler.
== END 2024-03-22 11:10 | disposition home or self-care (01) ==
LOC: MICIMG 11:09
PROVIDERS: PCP Obstetrics & Gynecology Gynecology; Visit Provider Obstetrics & Gynecology Gynecology
DX: O36.5930 Maternal care for other known or suspected poor fetal growth, third trimester, not applicable or unspecified (principal); Z3A.00 Weeks of gestation of pregnancy not specified
CPT/HCPCS: 76816; 76820

== ENCOUNTER 2024-03-28 15:08 | Outpatient (CLI) | payer OTHER, MEDICAID, SELFPAY ==
[2024-03-28] VITALS (37 sets, daily range): BP systolic 118–148; BP diastolic 71–106; PULSE 65–118; O2SAT 96–100; BMI 31.7
[2024-03-28 16:04] LABS: Basophils Percent Auto 0.2 % (0.2-1.2); Eosinophils Percent Auto 0.4 % (0-4.4); Hematocrit 33.6 % (37.0-47.0); Immature Granulocyte Absolute 0.08 K/mm3 (0.00-0.031); Immature Granulocyte Percent A 0.8 % (0-0.5); Lymphocytes Percent Auto 14.6 % (18.3-44.2); Mean Corpuscular HGB Conc 32.7 g/dl (32-36); Mean Corpuscular Hemoglobin 28.3 pg (26-34); Mean Corpuscular Volume 86.4 fl (80-100); Mean Platelet Volume 9.1 fl (7.4-10.4); Monocytes Absolute Auto 0.9 K/mm3 (0.1-0.6); Monocytes Percent Auto 9.2 % (2.6-8.5); Neutrophils Absolute Auto 7.2 K/mm3 (1.3-6.7); Neutrophils Percent Auto 74.8 % (45.5-73.1); Platelet Count Result 286 k/mm3 (150-375); Red Blood Count 3.89 M/mm3 (4.2-5.4); Red Cell Distribution Width 14.6 % (11.5-14.5); White Blood Count 9.6 K/mm3 (4.5-10.0)
[2024-03-28 16:08] LABS: Add Urine Microscopic? YES; Appearance Urine Cloudy (Clear); Bacteria Urine Rare /hpf; Bilirubin Urine Negative (Negative); Blood Urine Negative (Negative); Color Urine Yellow (Yellow); Glucose Urine UA Negative (Negative); Ketones Urine Negative (Negative); Leukocyte Esterase Ur 1+ LEU/UL (Negative); Nitrate Urine Negative (Negative); Non Pathogenic Casts 0-2; Protein Urine Negative (Negative); RBC Urine 0-2 /hpf (0-2); Specific Grav Ur 1.014 (1.001-1.035); Squamous Epithelial Cell Urine Moderate /hpf (Few); Urobilinogen Urine 0.2 mg/dL (<2.0); pH Urine 6.5 (5.0-9.0)
[2024-03-28 16:14] LABS: Alanine Aminotransferase 19 U/L (6-35); Albumin Level 3.6 g/dL (3.5-5.1); Alkaline Phosphatase 138 U/L (38-126); Anion Gap 7 mmol/L (4-12); Aspartate Amino Transferase 20 U/L (14-36); Bilirubin,Total 0.6 mg/dL (0.2-1.3); Blood Urea Nitrogen 8 mg/dL (7-17); Calcium 9.6 mg/dL (8.4-10.2); Carbon Dioxide 20 mmol/L (22-30); Chloride 105 mmol/L (98-107); Estimated Glomerular Filt Rate > 60; Glucose 76 mg/dL (65-110); Potassium 3.9 mmol/L (3.4-5.0); Sodium 132 mmol/L (137-145); Uric Acid 5.7 mg/dL (2.5-7.5)
[2024-03-28 17:02] LABS: Creatinine Urine 85.8 mg/dL; Total Protein Urine Random 13 mg/dL; Ur Ttl Prot Creatinine Ratio 0.15 mg/mg (0-0.20)
--- NOTE | 2024-03-28 17:42 | PC.NURSE ---
Roselyn Garduno [facility] returned page and informed pt has had a couple of variable decels since around 1700. CN states she has reviewed the tracing and it looks much better than the tracing in the office. Pt has had a recent KIRT that was normal. MELODIEM informed of lab results including Na of 132. OK to discharge pt to home.
== END 2024-03-28 17:53 | disposition home or self-care (01) ==
LOC: ANHOBOP 15:13 → ANHOBPP 15:13
PROVIDERS: PCP Obstetrics & Gynecology Gynecology; Visit Provider Advanced Practice Midwife
DX: O13.9 Gestational [pregnancy-induced] hypertension without significant proteinuria, unspecified trimester (principal); Z3A.00 Weeks of gestation of pregnancy not specified
CPT/HCPCS: 36415; 59025; 80053; 81001; 82570; 84156; 84550; 85025; 87086; 99199

== ENCOUNTER 2024-03-29 13:31 | Outpatient (CLI) | payer OTHER, MEDICAID, SELFPAY ==
--- NOTE | ~2024-03-29 | US_ITS ---
EXAMINATION: US OB follow up, US OB velocimetry umbilcal art DATE: 03/29/2024 13:59 INDICATION: Estimated size less than expected for estimated gestational age TECHNIQUE: Real-time ultrasound of the pelvis was performed. The interpreting radiologist was not pre sent for the study. COMPARISON: None. FINDINGS: There is a single living fetus in vertex presentation. The placenta is anterior. heart rate is 149 beats per minute (bpm). The amniotic fluid index is 13.1 cm, which is normal (5th%-95%: 7.7-24. 9 cm at 36 weeks estimated gestational age). The following biometric data were obtained: BPD: 8.7 cm -> 35 weeks 1 days Head circumference: 32.7 cm -> 37 weeks 0 days Abdominal circumference: 31.1 cm -> 35 weeks 0 days Femur length: 6.2 cm -> 32 weeks 2 days These measurements are concordant. Head circumference to abdominal circumference ratio: 1.05 (normal range 0.93-1.11). Estimated weight: 2446 g (+/-) 367 g or 5 lbs. 6 oz. (+/-) 13 oz. The umbilical artery demonstrates a peak systolic and diastolic velocity ratio of 2.0 at the fetus an d 2.5 near the placenta (5th%-95%: 1.98-3.29 at 36 weeks). The provided velocity curve for the mid co rd demonstrates variability in both the peak systolic and diastolic velocities. The greatest ratio is measured at 4.9 however immediately prior ratio is <2. IMPRESSION: 1. Single living fetus in vertex presentation with heart rate of 149 bpm. 2. Normal amniotic fluid index of 13.1 cm. 3. Estimated weight is 15th percentile by Hadlock criteria when 04/26/2024 is used as the estim ated date of delivery (PAUL). Please correlate with clinical information or earlier ultrasounds for mo st accurate PAUL. 4. Normal umbilical arterial peak systolic to diastolic ratios at the fetus and near the placenta. Th ere is variability in both the peak systolic and diastolic velocities in the mid cord precluding accu rate assessment at this location. Reviewed, dictated and finalized at location A. IMPRESSION: 1. Single living fetus in vertex presentation with heart rate of 149 bpm. 2. Normal amniotic fluid index of 13.1 cm. 3. Estimated weight is 15th percentile by Hadlock criteria when 4 is used as the estimated date of delivery (PAUL). Please correlate with clinic al information or earlier ultrasounds for most accurate PAUL. 4. Normal umbilical arterial peak systolic to diastolic ratios at the fetus and near the placenta. There is variability in both the peak systolic and diastoli c velocities in the mid cord precluding accurate assessment at this location.
== END 2024-03-29 13:32 | disposition home or self-care (01) ==
LOC: MICIMG 13:31
PROVIDERS: PCP Obstetrics & Gynecology Gynecology; Visit Provider Obstetrics & Gynecology Gynecology
DX: O36.5930 Maternal care for other known or suspected poor fetal growth, third trimester, not applicable or unspecified (principal)
CPT/HCPCS: 76816; 76820

== ENCOUNTER 2024-03-31 12:52 | Outpatient (CLI) | payer OTHER, MEDICAID, SELFPAY ==
[2024-03-31 13:49] LABS: Total Volume 24 Hour Urine 900 ml
[2024-03-31 13:52] LABS: Total Protein Urine 24 Hr 117 mg/24hr (28-141); Total Protein Urine Random 13 mg/dL
== END 2024-03-31 12:53 | disposition home or self-care (01) ==
LOC: ANHLAB 12:55
PROVIDERS: PCP Obstetrics & Gynecology Gynecology; Visit Provider Obstetrics & Gynecology Gynecology
DX: O13.9 Gestational [pregnancy-induced] hypertension without significant proteinuria, unspecified trimester (principal)
CPT/HCPCS: 81050; 84156

== ENCOUNTER 2024-04-06 12:50 | Outpatient (CLI) | payer OTHER, MEDICAID, SELFPAY ==
--- NOTE | ~2024-04-06 | US_ITS ---
EXAMINATION: US OB follow up, US OB velocimetry umbilcal art DATE: 04/06/2024 13:18 INDICATION: Estimated size less than expected for estimated gestational age. Hypertension. TECHNIQUE: Real-time ultrasound of the pelvis was performed. The interpreting radiologist was not pre sent for the study. COMPARISON: None. FINDINGS: There is a single living fetus in vertex presentation. The placenta is anterior but not low-lying. F etal heart rate is 131 beats per minute (bpm). The amniotic fluid index is 11.3 cm, which is normal (5th%-95%: 7.5-24.4 cm at 37 weeks estimated gestational age). The following biometric data were obtained: BPD: 8.8 cm -> 35 weeks 3 days Head circumference: 32.2 cm -> 36 weeks 3 days Abdominal circumference: 31.1 cm -> 35 weeks 0 days Femur length: 6.4 cm -> 33 weeks 1 days These measurements are concordant. Head circumference to abdominal circumference ratio: 1.04 (normal range 0.93-1.11). Estimated weight: 2488 g (+/-) 373 g or 5 lbs. 8 oz. (+/-) 13 oz. The umbilical artery demonstrates a peak systolic and diastolic velocity ratio of 4.5at the fetus, 2. 1 in the mid cord and 2.2 near the placenta (5th%-95%: 1.9-3.1 at 37 weeks). IMPRESSION: 1. Single living fetus in vertex presentation with heart rate of 131 bpm. 2. Normal amniotic fluid index of 11.3 cm. 3. Estimated weight is 7th percentile by Hadlock criteria when 05/04/2024 is used as the estima mariel date of delivery (PAUL). Please correlate with clinical information or earlier ultrasounds for mos t accurate PAUL. 4. Umbilical artery peak systolic to diastolic velocity ratio is elevated near the fetus but at the l ower range of normal near the placenta and the mid cord. Reviewed, dictated and finalized at location A. IMPRESSION: 1. Single living fetus in vertex presentation with heart rate of 131 bpm. 2. Normal amniotic fluid index of 11.3 cm. 3. Estimated weight is 7th percentile by Hadlock criteria when 05/04/2024 is used as the estimated date of delivery (PAUL). Please correlate with clinica l information or earlier ultrasounds for most accurate PAUL. 4. Umbilical artery peak systolic to diastolic velocity ratio is elevated near the fetus but at the lower range of normal near the placenta and the mid cord.
== END 2024-04-06 12:51 | disposition home or self-care (01) ==
PROVIDERS: PCP Obstetrics & Gynecology Gynecology; Visit Provider Obstetrics & Gynecology Gynecology
DX: O36.5990 Maternal care for other known or suspected poor fetal growth, unspecified trimester, not applicable or unspecified (principal); Z3A.00 Weeks of gestation of pregnancy not specified
CPT/HCPCS: 76816; 76820

== ENCOUNTER 2024-04-13 11:51 | Outpatient (CLI) | payer OTHER, MEDICAID, SELFPAY ==
--- NOTE | ~2024-04-13 | US_ITS ---
EXAMINATION: 1. US OB follow up w BPP 2. US OB velocimetry umbilcal art DATE: 04/13/2024 13:18 INDICATION: Size less than dates. . Third trimester. TECHNIQUE: Real-time pelvic ultrasound was performed. COMPARISON: Ultrasound 04/06/2024, 09/14/2023 FINDINGS: There is a single living fetus in vertex presentation. The placenta is anterior. heart rate is 131 beats per minute (bpm). The amniotic fluid index is 11.8 cm which is normal. The following biometric data were obtained: Biparietal diameter (BPD): 9.1 cm; head circumference (HC): 32.7 cm; abdominal circumference (AC): 32 .0 cm; femur length (FL): 5.8 cm. These measurements are discordant with low FL/BPD, FL/AC, and FL/HC. Estimated weight is 2496 g +/- 374 g, which correlates with the 3rd percentile when 04/26/24 is used as estimated date of delivery. As single measurements, these parameters are each equal to the following estimated gestational ages: BPD: 37 weeks 1 days. HC: 37 weeks 1 days. AC: 36 weeks 0 days. FL: 30 weeks 2 days. estimated gestational age based solely on measurements from this exam is 35 weeks 1 days +/- 2 weeks 3 days. Biophysical profile performed by the technologist: breathing (30 sec sustained breathing in 30 minutes): 0 out of 2 movement (3 gross body movements in 30 minutes): 2 out of 2 tone (one episode of dbvpxta-lbaagswar-fahtddh limb movement): 2 out of 2 Amniotic fluid pocket (2 cm): 2 out of 2 Total score: 6 out of 8 Umbilical artery pulsed Doppler demonstrates a peak systolic to end-diastolic velocity ratio (S/D rat io) of 2.6 (5th percentile = 1.9, 95th percentile = 3.08). IMPRESSION: 1. Single living fetus in vertex presentation. 2. Small for gestational age. Estimated weight is 2496 g +/- 374 g, which correlates with the 3 rd percentile when 04/26/24 is used as estimated date of delivery. This date was set by ultrasound on 09/14/2023. 4. Discordant biometrics with low FL/BPD, FL/AC, and FL/HC. 5. Biophysical profile 6 out of 8. 6. Normal umbilical artery Doppler. Reviewed, dictated and finalized at location A. PICKER IMPRESSION: 1. Single living fetus in vertex presentation. 2. Small for gestational age. Estimated weight is 2496 g +/- 374 g, which correlates with the 3rd percentile when 04/26/24 is used as estimated date of delivery. This date was set by ultrasound on 09/14/2023. 4. Discordant biometrics with low FL/BPD, FL/AC, and FL/HC. 5. Biophysical profile 6 out of 8. 6. Normal umbilical artery Doppler.
== END 2024-04-13 11:52 | disposition home or self-care (01) ==
PROVIDERS: PCP Obstetrics & Gynecology Gynecology; Visit Provider Obstetrics & Gynecology Gynecology
DX: Z36.2 Encounter for other antenatal screening follow-up (principal); Z3A.35 35 weeks gestation of pregnancy
CPT/HCPCS: 76816; 76819; 76820

== ENCOUNTER 2024-04-17 09:36 | Outpatient (RCR) | payer OTHER, MEDICAID, SELFPAY ==
--- NOTE | ~2024-04-17 | US_ITS ---
EXAMINATION: US OB BPP wo non-stress DATE: 04/17/2024 11:24 INDICATION: Nonreactive nonstress test an in office examination during third trimester . Ass ess biophysical profile. TECHNIQUE: Real-time pelvic ultrasound was performed. The interpreting radiologist was not present fo r the study. COMPARISON: None. FINDINGS: There is a single living fetus in vertex presentation. The placenta is anterior. heart rate is 148 beats per minute (bpm). Normal deepest vertical amniotic fluid pocket measurement of 3.9 cm. Biophysical profile performed by the technologist: breathing (30 sec sustained breathing in 30 minutes): 2 out of 2 movement (3 gross body movements in 30 minutes): 2 out of 2 tone (one episode of nxilxbs-qeabqwsxo-xrgmcip limb movement): 2 out of 2 Amniotic fluid pocket (2 cm): 2 out of 2 Total score: 8 out of 8 IMPRESSION: 1. Single living fetus in vertex presentation with heart rate of 148 bpm. 2. Biophysical profile 8 out of 8. Reviewed, dictated and finalized at location B. RIAL PROCESSOR
[2024-04-17 11:27] VITALS: BP 126/83; PULSE 93
== END 2024-05-02 17:48 | disposition home or self-care (01) ==
LOC: ANHOBOP 09:36
PROVIDERS: Visit Provider Advanced Practice Midwife
DX: O26.893 Other specified pregnancy related conditions, third trimester (principal); Z3A.00 Weeks of gestation of pregnancy not specified
CPT/HCPCS: 59025; 76819

== ENCOUNTER 2024-04-22 17:08 | Inpatient (IN) | payer OTHER, MEDICAID, SELFPAY ==
[2024-04-22] VITALS (75 sets, daily range): BP systolic 107–153; BP diastolic 63–97; PULSE 65–109; TEMP 37.2; O2SAT 96–99; BMI 32.9
--- NOTE | 2024-04-22 17:32 | LDADM ---
This patient, Lara Munguia, was admitted to Labor/Delivery/Recovery [facility] on 04/22/24 at 17:08. Plans for labor, pain management and were discussed with patient. Patient/family oriented to hospital policies and general routines including ID bracelet, bed and alarms, visiting hours, pain management, procedures, bathroom and other care routines, personal items, smoking policy, room service/diet and guest tray routines, infant security routines, and visiting hours. Patient/Family are encouraged to report perceived risks to care and to ask questions if they do not understand what they are told or what they should do. See OBIX for further documentation.
[2024-04-22 17:52] LABS: Basophils Percent Auto 0.2 % (0.2-1.2); Eosinophils Percent Auto 0.3 % (0-4.4); Hematocrit 35.8 % (37.0-47.0); Immature Granulocyte Absolute 0.09 K/mm3 (0.00-0.031); Immature Granulocyte Percent A 0.9 % (0-0.5); Lymphocytes Absolute Auto 1.58 K/mm3 (0.9-3.2); Lymphocytes Percent Auto 15.5 % (18.3-44.2); Mean Corpuscular HGB Conc 33.5 g/dl (32-36); Mean Corpuscular Hemoglobin 28.9 pg (26-34); Mean Corpuscular Volume 86.3 fl (80-100); Mean Platelet Volume 9.4 fl (7.4-10.4); Monocytes Absolute Auto 0.7 K/mm3 (0.1-0.6); Neutrophils Absolute Auto 7.8 K/mm3 (1.3-6.7); Neutrophils Percent Auto 76.1 % (45.5-73.1); Platelet Count Result 291 k/mm3 (150-375); Red Blood Count 4.15 M/mm3 (4.2-5.4); Red Cell Distribution Width 16.1 % (11.5-14.5); White Blood Count 10.2 K/mm3 (4.5-10.0)
[2024-04-22 18:18] LABS: Alanine Aminotransferase 17 U/L (6-35); Albumin Level 3.8 g/dL (3.5-5.1); Alkaline Phosphatase 154 U/L (38-126); Anion Gap 10 mmol/L (4-12); Aspartate Amino Transferase 23 U/L (14-36); Bilirubin,Total 0.5 mg/dL (0.2-1.3); Blood Urea Nitrogen 12 mg/dL (7-17); Carbon Dioxide 17 mmol/L (22-30); Chloride 105 mmol/L (98-107); Estimated CRCL calculation 135 ml/min; Estimated Glomerular Filt Rate > 60; Glucose 132 mg/dL (65-110); Sodium 132 mmol/L (137-145); Uric Acid 5.7 mg/dL (2.5-7.5)
[2024-04-22 18:57] LABS: Rapid Plasma Reagin Non-Reactive (NonReactive)
[2024-04-22] MEDS: miSOPROStol 25 MCG TABLET BUCCAL (18:59)
[2024-04-22 19:10] LABS: HIV 1/2 Ab P24 Ag Result Negative (Negative)
[2024-04-22] MEDS: miSOPROStol 25 MCG TABLET 50 MCG BUCCAL (22:55)
[2024-04-23] VITALS (355 sets, daily range): BP systolic 62–192; BP diastolic 32–135; PULSE 30–190; RESP 16; TEMP 36.5–37.6; O2SAT 87–100
[2024-04-23] MEDS: LACTATED RINGERS 500 ML 999 ML IV CONT (00:17)
[2024-04-23] MEDS: miSOPROStol 25 MCG TABLET 50 MCG BUCCAL (02:57)
[2024-04-23] MEDS: ONDANSETRON INJ 4 MG/2 ML VIAL IV PUSH (03:12)
--- NOTE | 2024-04-23 06:47 | WPDANESEPP ---
Anes - Eval Pre Procedure Procedure: labor epidural Date/Time: 04/23/24 06:47 Surgeon: paulie Preop Diagnosis: pain during labor Pre Op Diagnosis: IOL Patient Data Age: 23 Gender: F Height: 1.63 m Weight: 87 kg Last Vital Signs Temp 36.6 C 04/23/24 06:08 Pulse 60 04/23/24 06:01 BP 116/68 04/23/24 06:01 Pulse Ox 98 04/23/24 06:46 O2 Del Method Room Air 04/22/24 17:31 Allergies Allergy/AdvReac Type Severity Reaction Status Date / Time No Known Allergies Allergy Verified 09/14/23 03:23 Home Medications Medication Instructions Recorded Confirmed Type aspirin 81 mg chewable tablet 81 mg PO DAILY 03/28/24 04/22/24 History ferrous sulfate 142 mg (45 mg 142 mg PO DAILY 03/28/24 04/22/24 History iron) tablet,extended release nifedipine 30 mg tablet,extended 30 mg PO DAILY 03/28/24 04/22/24 History release vit no.95-ferrous 1 tablet PO DAILY 03/28/24 04/22/24 History fumarate 28 mg-folic acid 800 mcg tablet () Laboratory Tests 04/22/24 04/22/24 17:19 17:19 WBC 10.2 H K/mm3 (4.5-10.0) RBC 4.15 L M/mm3 (4.2-5.4) Hgb 12.0 g/dL (12.0-15.0) Hct 35.8 L % (37.0-47.0) MCV 86.3 fl (80-100) MCH 28.9 pg (26-34) MCHC 33.5 g/dl (32-36) RDW 16.1 H % (11.5-14.5) Plt Count 291 k/mm3 (150-375) MPV 9.4 fl (7.4-10.4) Immature Gran % (Auto) 0.9 H % (0-0.5) Neut % (Auto) 76.1 H % (45.5-73.1) Lymph % (Auto) 15.5 L % (18.3-44.2) Converse % (Auto) 7.0 % (2.6-8.5) Eos % (Auto) 0.3 % (0-4.4) Baso % (Auto) 0.2 % (0.2-1.2) Lymph # (Auto) 1.58 K/mm3 (0.9-3.2) Converse # (Auto) 0.7 H K/mm3 (0.1-0.6) Eos # (Auto) 0.0 K/mm3 (0-0.3) Baso # (Auto) 0.0 K/mm3 (0.0-0.1) Abs Immat Gran (auto) 0.09 H K/mm3 (0.00-0.031) Absolute Neuts (auto) 7.8 H K/mm3 (1.3-6.7) Absolute Nucleated RBC 0.000 K/mm3 (0.0-0.012) Nucleated RBC % 0.0 % (0.0-0.2) Sodium 132 L mmol/L (137-145) Potassium 4.0 mmol/L (3.4-5.0) Chloride 105 mmol/L (98-107) Carbon Dioxide 17 L mmol/L (22-30) Anion Gap 10 mmol/L (4-12) BUN 12 mg/dL (7-17) Creatinine 0.60 L mg/dL (0.7-1.0) Estim Creat Clear Calc 135 ml/min Estimated GFR > 60 (59 - ) Glucose 132 H mg/dL (65-110) Uric Acid Cancelled 5.7 mg/dL (2.5-7.5) Calcium 10.0 mg/dL (8.4-10.2) Total Bilirubin 0.5 mg/dL (0.2-1.3) AST 23 U/L (14-36) ALT 17 U/L (6-35) Alkaline Phosphatase 154 H U/L (38-126) Total Protein 7.0 g/dL (6.3-8.2) Albumin 3.8 g/dL (3.5-5.1) RPR Non-reactive (NonReactive) HIV 1&2 Ab/P24 Ag 4thGn Negative (Negative) Blood Type A Positive Antibody Screen Negative Patient hx anesthesia problems: none Family hx anesthesia problems: none Results Review: All pre-operative results and documents have been reviewed as part of the pre-operative evaluation. REPLACED BY [facility] Family History Family History (Updated 03/29/24 @ 12:41 by Bria Torres RN) Grandparent Hypertension Social History Social History Smoking status: Never smoker Second hand tobacco smoke exposure: No Substance use: never Do You Feel Safe in your Home?: Yes Lack of Transportation: No Lack of Food: Never True Current Housing: I Have Housing Concerned About Future Housing: No Difficulty Paying Gas/Electric Bills: No Difficulty Paying for Meds: No Currently Unemployed: No Education: High School Diploma/GED Difficulty w/ Childcare or Family Care: No Spiritual care concerns: No Exam Day of Procedure 04/23/24 06:47
--- NOTE | 2024-04-23 07:56 | WPDOBADMIT ---
Obstetrics - Admit Note Admission Note: record reviewed. No pertinent additions to the history and/or any subsequent changes in the physical findings that are not consistent with the expected course of the were found. Additions to the history and/or subsequent changes in the physical findings follow. None.
--- NOTE | 2024-04-23 07:57 | PM.OBPNLAB ---
Pain Control Date/time seen: 04/23/24 07:30 Pain control: tolerating well Comments: CNM called by RN overnight with discussion about tracing. Had some variable decels and intermittent late decels. Overall tracing still reassuring. Pt went on to receive another 2 doses of cytotec. Pelvic Exam Dilation (cm): 1 Effacement (%): 80 station: -2 Amniotic membrane status: Intact Comments: head very well applied to cervix. Contractions Monitor mode: External Contraction pattern: Irregular Contraction phase: Contraction Contraction intensity: Mild Status Comments: Baseline 125 with moderate variability. Assessment and Plan Assessment: induction ongoing Comments: CNM to bedside. Discussed plan of care and option for amniotomy and IUPC placement. Discussed risks, benefits, and expectations of breaking water. Patient is agreeable. Amniotomy performed and there was a small return of clear amniotic fluid. IUPC placed easily and clear fluid returned in catheter. Patient tolerated procedure well. Plan to start pitocin in 1+ hours (can wait up to 4 if pt desires) if no evidence of adequate labor. Dr. Leyva updated.
[2024-04-23] MEDS: fentaNYL CITRATE INJ (*CRX) 100 MCG/2 ML VIAL 50 MCG IV PUSH (08:14)
[2024-04-23] MEDS: LACTATED RINGERS 1,000 ML 125 ML IV CONT ×2 (08:47→14:33)
[2024-04-23] MEDS: OXYTOCIN 30 UNITS/NS 500 ML 30 UNITS/500 ML BAG IV CONT (12:42)
--- NOTE | 2024-04-23 15:13 | PM.OBPNLAB ---
Pain Control Date/time seen: 04/23/24 15:07 phone call with RN Pain control: epidural Pelvic Exam Comments: no recent SVE Contractions Monitor mode: Internal Contraction pattern: Irregular (dysfunctional pattern) Status Comments: FHTs baseline 130. Mod variability, periods of minimal. Occasional variable and early deceleration. Assessment and Plan Assessment: induction ongoing Comments: Dysfunctional contraction pattern with coupling/tippling at times. Occasional periods of regular ctx pattern. Encourage maternal position changes to allow for optimal rotation/descent.
--- NOTE | 2024-04-23 15:19 | PM.IMHP ---
H&P: HPI History of Present Illness Date/Time: 04/23/24 15:19 Chief Complaint: Indction of labor 2/2 gHTN Narrative: Lara is a 23 y.o. at 39 weeks days gestation undergoing IOL 2/2 gHTN. Her gHTN has been well controlled on PO Nifedipine. Her was also complicated by growth restriction, hyperemesis and anxiety. Her GBS culture was negative. Her induction was started with Cytotec buccally overnight after wich she underwent amniotomy. Pitocin was started after contraction pattern decreased. Review of Systems Review of Systems: All systems reviewed & are unremarkable except as noted in HPI and below PMFSH Family History Family History (Updated 03/29/24 @ 12:41 by Bria Torres RN) Grandparent Hypertension Social History Social History Smoking status: Never smoker Second hand tobacco smoke exposure: No Substance use: never Do You Feel Safe in your Home?: Yes Lack of Transportation: No Lack of Food: Never True Current Housing: I Have Housing Concerned About Future Housing: No Difficulty Paying Gas/Electric Bills: No Difficulty Paying for Meds: No Currently Unemployed: No Education: High School Diploma/GED Difficulty w/ Childcare or Family Care: No Spiritual care concerns: No Meds Home Medications and Allergies Home Medications Medication Instructions Recorded Confirmed Type aspirin 81 mg chewable tablet 81 mg PO DAILY 03/28/24 04/22/24 History ferrous sulfate 142 mg (45 mg 142 mg PO DAILY 03/28/24 04/22/24 History iron) tablet,extended release nifedipine 30 mg tablet,extended 30 mg PO DAILY 03/28/24 04/22/24 History release vit no.95-ferrous 1 tablet PO DAILY 03/28/24 04/22/24 History fumarate 28 mg-folic acid 800 mcg tablet () Allergies Allergy/AdvReac Type Severity Reaction Status Date / Time No Known Allergies Allergy Verified 09/14/23 03:23 Vital Signs Vital Signs - 24 hr 04/22/24 17:31 04/22/24 17:49 04/22/24 18:01 Temperature Pulse Rate 91 102 H Blood Pressure 143/82 H 143/97 H Pulse Oximetry Oxygen Delivery Room Air 04/22/24 18:16 04/22/24 18:31 04/22/24 19:00 Temperature 99 F Pulse Rate 108 H 85 Blood Pressure 153/89 H 124/69 Pulse Oximetry 98 Oxygen Delivery 04/22/24 19:01 04/22/24 19:05 04/22/24 19:10 Temperature Pulse Rate 98 Blood Pressure 149/97 H Pulse Oximetry 99 99 Oxygen Delivery 04/22/24 19:15 04/22/24 19:20 04/22/24 19:25 Temperature Pulse Rate Blood Pressure Pulse Oximetry 97 97 97 Oxygen Delivery 04/22/24 19:30 04/22/24 19:31 04/22/24 19:35 Temperature Pulse Rate 100 Blood Pressure 122/67 Pulse Oximetry 97 97 Oxygen Delivery 04/22/24 19:40 04/22/24 19:45 04/22/24 19:50 Temperature Pulse Rate Blood Pressure Pulse Oximetry 97 98 98 Oxygen Delivery 04/22/24 19:55 04/22/24 20:00 04/22/24 20:01 Temperature Pulse Rate 81 Blood Pressure 132/73 Pulse Oximetry 98 97 Oxygen Delivery 04/22/24 20:05 04/22/24 20:10 04/22/24 20:15 Temperature Pulse Rate Blood Pressure Pulse Oximetry 98 97 97 Oxygen Delivery 04/22/24 20:20 04/22/24 20:25 04/22/24 20:30 Temperature 98.9 F Pulse Rate Blood Pressure Pulse Oximetry 98 98 98 Oxygen Delivery 04/22/24 20:31 04/22/24 20:35 04/22/24 20:40 Temperature Pulse Rate 91 Blood Pressure 129/76 Pulse Oximetry 98 98 Oxygen Delivery 04/22/24 20:45 04/22/24 20:50 04/22/24 20:55 Temperature Pulse Rate Blood Pressure Pulse Oximetry 97 97 98 Oxygen Delivery 04/22/24 21:00 04/22/24 21:01 04/22/24 21:05 Temperature Pulse Rate 81 Blood Pressure 130/66 Pulse Oximetry 98 99 Oxygen Delivery 04/22/24 21:10 04/22/24 21:15 04/22/24 21:20 Temperature Pulse Rate Blood Pressure Pulse Oximetry 97 98 97 Oxygen Delivery 04/22/24 21:25 04/22/24 21:30 04/22/24 21:31 Temperature Pulse Rate 84 Blood Pressure 130/68 Pulse Oximetry 97 97 Oxygen Delivery 04/22/24 21:35 04/22/24 21:40 04/22/24 21:45 Temperature Pulse Rate Blood Pressure Pulse Oximetry 97 98 98 Oxygen Delivery 04/22/24 21:50 04/22/24 21:55 04/22/24 22:00 Temperature Pulse Rate Blood Pressure Pulse Oximetry 98 98 98 Oxygen Delivery 04/22/24 22:01 04/22/24 22:05 04/22/24 22:12 Temperature Pulse Rate 70 Blood Pressure 132/80 Pulse Oximetry 98 98 Oxygen Delivery 04/22/24 22:17 04/22/24 22:22 04/22/24 22:27 Temperature Pulse Rate Blood Pressure Pulse Oximetry 99 98 98 Oxygen Delivery 04/22/24 22:31 04/22/24 22:32 04/22/24 22:36 Temperature Pulse Rate 72 Blood Pressure 107/86 Pulse Oximetry 98 99 Oxygen Delivery 04/22/24 22:41 04/22/24 22:46 04/22/24 22:51 Temperature Pulse Rate Blood Pressure Pulse Oximetry 98 97 97 Oxygen Delivery 04/22/24 22:56 04/22/24 22:58 04/22/24 23:01 Temperature Pulse Rate 72 Blood Pressure 133/65 Pulse Oximetry 96 96 Oxygen Delivery 04/22/24 23:03 04/22/24 23:08 04/22/24 23:13 Temperature Pulse Rate Blood Pressure Pulse Oximetry 97 96 96 Oxygen Delivery 04/22/24 23:18 04/22/24 23:23 04/22/24 23:28 Temperature Pulse Rate Blood Pressure Pulse Oximetry 96 97 97 Oxygen Delivery 04/22/24 23:31 04/22/24 23:33 04/22/24 23:33 Temperature Pulse Rate 77 Blood Pressure 136/63 Pulse Oximetry 97 98 Oxygen Delivery 04/22/24 23:38 04/22/24 23:43 04/22/24 23:48 Temperature Pulse Rate Blood Pressure Pulse Oximetry 98 98 98 Oxygen Delivery 04/22/24 23:53 04/22/24 23:58 04/23/24 00:00 Temperature Pulse Rate Blood Pressure Pulse Oximetry 98 96 92 Oxygen Delivery 04/23/24 00:01 04/23/24 00:02 04/23/24 00:03 Temperature Pulse Rate 77 Blood Pressure 150/72 H Pulse Oximetry 98 92 Oxygen Delivery 04/23/24 00:08 04/23/24 00:13 04/23/24 00:16 Temperature Pulse Rate Blood Pressure Pulse Oximetry 98 98 99 Oxygen Delivery 04/23/24 00:21 04/23/24 00:26 04/23/24 00:31 Temperature Pulse Rate 61 Blood Pressure 153/91 H Pulse Oximetry 98 98 97 Oxygen Delivery 04/23/24 00:36 04/23/24 00:41 04/23/24 00:46 Temperature Pulse Rate Blood Pressure Pulse Oximetry 98 98 99 Oxygen Delivery 04/23/24 00:50 04/23/24 00:51 04/23/24 00:56 Temperature Pulse Rate Blood Pressure Pulse Oximetry 97 98 99 Oxygen Delivery 04/23/24 00:58 04/23/24 01:01 04/23/24 01:09 Temperature Pulse Rate 70 Blood Pressure 138/67 Pulse Oximetry 97 98 Oxygen Delivery 04/23/24 01:14 04/23/24 01:19 04/23/24 01:24 Temperature Pulse Rate Blood Pressure Pulse Oximetry 98 98 99 Oxygen Delivery 04/23/24 01:29 04/23/24 01:31 04/23/24 01:34 Temperature Pulse Rate 120 H Blood Pressure 109/59 L Pulse Oximetry 96 99 Oxygen Delivery 04/23/24 01:39 04/23/24 01:44 04/23/24 01:49 Temperature Pulse Rate Blood Pressure Pulse Oximetry 98 98 98 Oxygen Delivery 04/23/24 01:54 04/23/24 01:59 04/23/24 02:01 Temperature Pulse Rate 66 Blood Pressure 126/76 Pulse Oximetry 98 98 Oxygen Delivery 04/23/24 02:04 04/23/24 02:09 04/23/24 02:14 Temperature Pulse Rate Blood Pressure Pulse Oximetry 97 96 96 Oxygen Delivery 04/23/24 02:19 04/23/24 02:24 04/23/24 02:29 Temperature Pulse Rate Blood Pressure Pulse Oximetry 98 98 98 Oxygen Delivery 04/23/24 02:31 04/23/24 02:34 04/23/24 02:39 Temperature Pulse Rate 69 Blood Pressure 132/79 Pulse Oximetry 98 98 Oxygen Delivery 04/23/24 02:44 04/23/24 02:49 04/23/24 02:54 Temperature Pulse Rate Blood Pressure Pulse Oximetry 98 99 98 Oxygen Delivery 04/23/24 02:59 04/23/24 03:01 04/23/24 03:04 Temperature Pulse Rate 67 Blood Pressure 130/65 Pulse Oximetry 99 98 Oxygen Delivery 04/23/24 03:08 04/23/24 03:09 04/23/24 03:14 Temperature Pulse Rate Blood Pressure Pulse Oximetry 99 100 98 Oxygen Delivery 04/23/24 03:19 04/23/24 03:24 04/23/24 03:29 Temperature Pulse Rate Blood Pressure Pulse Oximetry 98 98 98 Oxygen Delivery 04/23/24 03:31 04/23/24 03:34 04/23/24 03:39 Temperature Pulse Rate 68 Blood Pressure 118/56 L Pulse Oximetry 99 98 Oxygen Delivery 04/23/24 03:44 04/23/24 03:49 04/23/24 03:54 Temperature Pulse Rate Blood Pressure Pulse Oximetry 98 98 97 Oxygen Delivery 04/23/24 03:59 04/23/24 04:01 04/23/24 04:06 Temperature Pulse Rate 59 L Blood Pressure 98/54 L Pulse Oximetry 98 98 98 Oxygen Delivery 04/23/24 04:11 04/23/24 04:16 04/23/24 04:21 Temperature Pulse Rate Blood Pressure Pulse Oximetry 98 98 98 Oxygen Delivery 04/23/24 04:26 04/23/24 04:31 04/23/24 04:36 Temperature Pulse Rate 55 L Blood Pressure 104/61 Pulse Oximetry 98 96 99 Oxygen Delivery 04/23/24 04:41 04/23/24 04:46 04/23/24 04:51 Temperature Pulse Rate Blood Pressure Pulse Oximetry 98 99 98 Oxygen Delivery 04/23/24 04:56 04/23/24 03:00 04/23/24 05:01 Temperature 97.9 F Pulse Rate 62 Blood Pressure 103/59 L Pulse Oximetry 98 98 Oxygen Delivery 04/23/24 05:06 04/23/24 05:11 04/23/24 05:16 Temperature Pulse Rate Blood Pressure Pulse Oximetry 97 97 97 Oxygen Delivery 04/23/24 05:21 04/23/24 05:26 04/23/24 05:31 Temperature Pulse Rate 63 Blood Pressure 126/67 Pulse Oximetry 98 97 96 Oxygen Delivery 04/23/24 05:36 04/23/24 05:41 04/23/24 05:46 Temperature Pulse Rate Blood Pressure Pulse Oximetry 98 98 97 Oxygen Delivery 04/23/24 05:51 04/23/24 05:56 04/23/24 06:01 Temperature Pulse Rate 60 Blood Pressure 116/68 Pulse Oximetry 99 98 97 Oxygen Delivery 04/23/24 06:03 04/23/24 06:08 04/23/24 06:13 Temperature 98 F Pulse Rate Blood Pressure Pulse Oximetry 100 98 98 Oxygen Delivery 04/23/24 06:18 04/23/24 06:23 04/23/24 06:28 Temperature Pulse Rate Blood Pressure Pulse Oximetry 99 98 99 Oxygen Delivery 04/23/24 06:36 04/23/24 06:41 04/23/24 06:46 Temperature Pulse Rate Blood Pressure Pulse Oximetry 98 97 98 Oxygen Delivery 04/23/24 06:51 04/23/24 06:56 04/23/24 07:01 Temperature Pulse Rate 77 Blood Pressure 139/99 H Pulse Oximetry 98 99 98 Oxygen Delivery 04/23/24 07:06 04/23/24 07:11 04/23/24 07:16 Temperature Pulse Rate Blood Pressure Pulse Oximetry 98 99 97 Oxygen Delivery 04/23/24 07:21 04/23/24 07:26 04/23/24 07:31 Temperature Pulse Rate Blood Pressure Pulse Oximetry 100 96 96 Oxygen Delivery 04/23/24 07:36 04/23/24 07:41 04/23/24 07:46 Temperature Pulse Rate Blood Pressure Pulse Oximetry 99 98 98 Oxygen Delivery 04/23/24 07:51 04/23/24 07:52 04/23/24 07:57 Temperature Pulse Rate Blood Pressure Pulse Oximetry 97 98 97 Oxygen Delivery 04/23/24 07:59 04/23/24 08:01 04/23/24 08:04 Temperature Pulse Rate 72 Blood Pressure 127/71 Pulse Oximetry 99 98 Oxygen Delivery 04/23/24 08:09 04/23/24 08:19 04/23/24 08:24 Temperature Pulse Rate Blood Pressure Pulse Oximetry 97 97 97 Oxygen Delivery 04/23/24 08:29 04/23/24 08:31 04/23/24 08:34 Temperature Pulse Rate 73 Blood Pressure 127/73 Pulse Oximetry 97 97 Oxygen Delivery 04/23/24 08:45 04/23/24 08:50 04/23/24 08:54 Temperature Pulse Rate Blood Pressure Pulse Oximetry 96 96 100 Oxygen Delivery 04/23/24 08:59 04/23/24 09:03 04/23/24 09:04 Temperature Pulse Rate 87 99 Blood Pressure 135/80 151/79 H Pulse Oximetry 99 98 Oxygen Delivery 04/23/24 09:07 04/23/24 09:08 04/23/24 09:10 Temperature Pulse Rate 85 91 Blood Pressure 134/76 135/84 Pulse Oximetry 97 Oxygen Delivery 04/23/24 09:13 04/23/24 09:16 04/23/24 09:18 Temperature Pulse Rate 71 63 Blood Pressure 140/67 122/61 Pulse Oximetry 98 98 Oxygen Delivery 04/23/24 09:19 04/23/24 09:22 04/23/24 09:23 Temperature Pulse Rate 71 70 Blood Pressure 122/61 125/67 Pulse Oximetry 98 Oxygen Delivery 04/23/24 09:25 04/23/24 09:28 04/23/24 09:31 Temperature Pulse Rate 92 69 67 Blood Pressure 120/67 120/64 120/61 Pulse Oximetry 98 Oxygen Delivery 04/23/24 09:33 04/23/24 09:34 04/23/24 09:37 Temperature Pulse Rate 67 97 Blood Pressure 119/62 118/70 Pulse Oximetry 97 Oxygen Delivery 04/23/24 09:38 04/23/24 09:40 04/23/24 09:43 Temperature Pulse Rate 91 73 Blood Pressure 126/73 141/69 H Pulse Oximetry 97 98 Oxygen Delivery 04/23/24 09:45 04/23/24 09:46 04/23/24 10:01 Temperature Pulse Rate 72 61 Blood Pressure 131/94 H 116/60 Pulse Oximetry 98 Oxygen Delivery 04/23/24 10:05 04/23/24 10:10 04/23/24 10:15 Temperature Pulse Rate Blood Pressure Pulse Oximetry 97 97 98 Oxygen Delivery 04/23/24 10:16 04/23/24 10:20 04/23/24 10:25 Temperature Pulse Rate 67 Blood Pressure 123/70 Pulse Oximetry 98 98 Oxygen Delivery 04/23/24 10:33 04/23/24 10:38 04/23/24 10:43 Temperature Pulse Rate Blood Pressure Pulse Oximetry 97 96 96 Oxygen Delivery 04/23/24 10:46 04/23/24 10:48 04/23/24 10:53 Temperature Pulse Rate 61 Blood Pressure 102/52 L Pulse Oximetry 96 96 Oxygen Delivery 04/23/24 10:58 04/23/24 11:01 04/23/24 11:03 Temperature Pulse Rate 67 Blood Pressure 100/41 L Pulse Oximetry 95 96 Oxygen Delivery 04/23/24 11:08 04/23/24 11:13 04/23/24 11:16 Temperature Pulse Rate 57 L Blood Pressure 101/47 L Pulse Oximetry 96 96 Oxygen Delivery 04/23/24 11:18 04/23/24 11:23 04/23/24 11:28 Temperature Pulse Rate Blood Pressure Pulse Oximetry 96 97 97 Oxygen Delivery 04/23/24 11:31 04/23/24 11:33 04/23/24 11:38 Temperature Pulse Rate 72 Blood Pressure 100/37 L Pulse Oximetry 97 97 Oxygen Delivery 04/23/24 11:43 04/23/24 11:46 04/23/24 11:34 Temperature 97.7 F Pulse Rate 83 Blood Pressure 118/40 L Pulse Oximetry 100 Oxygen Delivery 04/23/24 11:48 04/23/24 11:53 04/23/24 11:58 Temperature Pulse Rate Blood Pressure Pulse Oximetry 99 99 100 Oxygen Delivery 04/23/24 12:01 04/23/24 12:02 04/23/24 12:04 Temperature Pulse Rate 91 Blood Pressure 118/54 L Pulse Oximetry 100 100 Oxygen Delivery 04/23/24 12:07 04/23/24 12:09 04/23/24 12:14 Temperature Pulse Rate Blood Pressure Pulse Oximetry 100 93 100 Oxygen Delivery 04/23/24 12:16 04/23/24 12:19 04/23/24 12:24 Temperature Pulse Rate 85 Blood Pressure 115/71 Pulse Oximetry 100 100 Oxygen Delivery 04/23/24 12:29 04/23/24 12:31 04/23/24 12:34 Temperature Pulse Rate 119 H Blood Pressure 110/55 L Pulse Oximetry 100 99 Oxygen Delivery 04/23/24 12:39 04/23/24 12:44 04/23/24 12:46 Temperature 97.8 F Pulse Rate 81 Blood Pressure 110/58 L Pulse Oximetry 93 100 Oxygen Delivery 04/23/24 12:49 04/23/24 12:54 04/23/24 12:59 Temperature Pulse Rate Blood Pressure Pulse Oximetry 98 100 99 Oxygen Delivery 04/23/24 13:01 04/23/24 13:04 04/23/24 13:10 Temperature Pulse Rate 76 Blood Pressure 130/70 Pulse Oximetry 98 99 Oxygen Delivery 04/23/24 13:08 04/23/24 13:15 04/23/24 13:16 Temperature 97.8 F Pulse Rate 58 L Blood Pressure 103/39 L Pulse Oximetry 100 Oxygen Delivery 04/23/24 13:20 04/23/24 13:25 04/23/24 13:30 Temperature Pulse Rate Blood Pressure Pulse Oximetry 100 99 99 Oxygen Delivery 04/23/24 13:31 04/23/24 13:35 04/23/24 13:40 Temperature Pulse Rate 60 Blood Pressure 100/42 L Pulse Oximetry 100 99 Oxygen Delivery 04/23/24 13:45 04/23/24 13:46 04/23/24 13:50 Temperature Pulse Rate 59 L Blood Pressure 104/45 L Pulse Oximetry 99 100 Oxygen Delivery 04/23/24 13:55 04/23/24 14:00 04/23/24 14:01 Temperature Pulse Rate 53 L Blood Pressure 100/45 L Pulse Oximetry 100 99 Oxygen Delivery 04/23/24 14:16 04/23/24 14:30 04/23/24 14:31 Temperature Pulse Rate 55 L 86 Blood Pressure 98/46 L 119/56 L Pulse Oximetry 100 Oxygen Delivery 04/23/24 14:35 04/23/24 14:40 04/23/24 14:45 Temperature Pulse Rate Blood Pressure Pulse Oximetry 100 100 100 Oxygen Delivery 04/23/24 14:46 04/23/24 14:50 04/23/24 14:55 Temperature Pulse Rate 79 Blood Pressure 115/71 Pulse Oximetry 100 100 Oxygen Delivery 04/23/24 15:00 04/23/24 15:01 04/23/24 15:04 Temperature Pulse Rate 67 Blood Pressure 110/59 L Pulse Oximetry 100 96 Oxygen Delivery 04/23/24 15:09 04/23/24 15:14 04/23/24 15:16 Temperature Pulse Rate 117 H Blood Pressure 98/62 L Pulse Oximetry 98 99 Oxygen Delivery 04/23/24 15:19 Temperature Pulse Rate Blood Pressure Pulse Oximetry 97 Oxygen Delivery Exam Narrative: Exam from 04/23/24 am. Const: General: comfortable and no acute distress Eyes: General: appearance normal, both eyes and all related structures Neck: Neck: supple Resp: Effort & Inspection: normal respiratory effort Cardio: Rate: regular rate GI: Other: gravid : General: Yes bladder normal to palpation External Female Exam: normal external appearance Skin: General skin exam: normal color and no rashes or lesions noted Wounds: no wounds Neuro: General: gait normal Speech: normal speech Motor exam (neuro): 5/5 motor strength present throughout Sensory Exam: normal sensation Extrem: General: edema (+ pitting) bilateral Psych: Mental Status: mental status grossly normal Affect: normal affect (somewhat flat but WNL for pt) H&P: Results Labs Labs: Short CBC 04/22/24 Range/Units 17:19 WBC 10.2 H (4.5-10.0) K/mm3 Hgb 12.0 (12.0-15.0) g/dL Hct 35.8 L (37.0-47.0) % Plt Count 291 (150-375) k/mm3 BMP 04/22/24 17:19 Sodium 132 L Potassium 4.0 Chloride 105 Carbon Dioxide 17 L BUN 12 Creatinine 0.60 L Glucose 132 H Calcium 10.0 Liver Function 04/22/24 Range/Units 17:19 Total Bilirubin 0.5 (0.2-1.3) mg/dL AST 23 (14-36) U/L ALT 17 (6-35) U/L Alkaline Phosphatase 154 H (38-126) U/L Albumin 3.8 (3.5-5.1) g/dL Assessment and Plan Assessment and plan (1) growth restriction antepartum: Code(s): O36.5990 - Maternal care for other known or suspected poor growth, unspecified trimester, not applicable or unspecified Status: Acute (2) Gestational hypertension: Code(s): O13.9 - Gestational [-induced] hypertension without significant proteinuria, unspecified trimester Status: Acute (3) Encounter for induction of labor: Code(s): Z34.90 - Encounter for supervision of normal , unspecified, unspecified trimester Status: Acute (4) Anxiety during : Code(s): O99.340 - Other mental disorders complicating , unspecified trimester; F41.9 - Anxiety disorder, unspecified Status: Acute Plan 1. 23 y.o. at 39 4/7 weeks gestation 2. IOL. s/p Cytotec and amniotomy. 3. gHTN- stable on Nifedipine. - no evidence of preeclampsia 4. FGR- normal dopplers. growth estimated at 15% per [facility] graph on 04/06/24 [place]. Normal NSTs/BPPs. 5. Anxiety- mood stable. No meds
--- NOTE | 2024-04-23 17:59 | PM.OBPNLAB ---
Pain Control Date/time seen: 04/23/24 7690 Pain control: tolerating well and epidural Pelvic Exam Dilation (cm): 5 Effacement (%): 90 station: 0 Amniotic membrane status: Ruptured Contractions Monitor mode: Internal Contraction frequency: 2 (1.5-5) Contraction duration: 60 (50-80) Contraction pattern: Irregular Status Comments: FHT baseline 145. Moderate variability. Variable and late decels. Assessment and Plan Assessment: induction ongoing Plan: continuous present management Comments: Pt assisted to right side and then left side for side lying release. CNM at bedside throughout. Only remained on each side for 3-4 minutes due to decels. Then repositioned to low fowlers with right tilt and left leg supported by peanut ball. Pitocin halved. Dr. Leyva updated.
[2024-04-23] MEDS: SODIUM CHLORIDE 0.9% IV 300 ML 600 ML I-UTERINE (18:21)
--- NOTE | 2024-04-23 19:27 | PM.OBPNLAB ---
Pain Control Date/time seen: 04/23/24 at 1925 Pain control: tolerating well and epidural Contractions Monitor mode: Internal Contraction frequency: 3 (1.5-5) Contraction duration: 60 (60-80) Contraction pattern: Irregular Intrauterine tone measurement: 220 Status Comments: FHT baseline 145. Moderate variability. Recurrent variable decelerations. Assessment and Plan Pitocin rate (mU/min): 4 Assessment: induction ongoing Comments: Amnioinfusion bolus complete. Variable decels continue. Plan to infuse additional 150ml. CNM at bedside and repositioned to left lateral. FHTs without improvement. Repositioned to right lateral.
--- NOTE | 2024-04-23 20:16 | PM.OBPNLAB ---
Pain Control Date/time seen: 04/23/24 20:15 Pain control: tolerating well and epidural Pelvic Exam Dilation (cm): 10 Effacement (%): 100 station: +2 Status Comments: Baseline 140. Minimal to moderate variability. +scalp stim. Assessment and Plan Pitocin rate (mU/min): 4 Comments: Will begin pushing. Anticipate vaginal . Dr. Leyva updated.
--- NOTE | 2024-04-23 20:18 | PM.OBPRVD ---
OB - Vaginal Delivery Note Procedure Delivery date: 04/23/24 Events: Gestational Hypertension and Intrauterine Growth Restriction (IUGR) Induction method: Per Misoprostol Protocol Delivery augmentation: Rupture of Membranes Delivery monitor: External FHT and Internal Uterine Route of delivery: Episiotomy description: None Laceration Description: Perineal - 2nd Degree, Vaginal (left vaginal wall 1st degree) and Labial (left labial 1st degree) Delivery repair: vicryl Specimen: Yes Quantitative Blood Loss (ml): 175 Anesthesia type: Epidural Disposition: Floor Complications: No immediate complications Narrative: Lara arrived for IOL d/t TN. She received cytotec overnight followed by amniotomy and pitocin. She received an epidural for analgesia. She made gradual cervical change to 5 cm and then very quick progress to complete dilation. She pushed with contractions and gradually brought the head to complete crown. With the next push, the entire head delivered. There was good restitution and a double nuchal cord was observed. The remainder of the delivered easily in 1 push in the somersault maneuver. The double nuchal cord was reduced and the was placed on the maternal abdomen and dried and stimulated by the nursery staff. After 1 minute of life, the cord was doubly clamped and cut. Cord blood, cord segment, cord gases were obtained. Placenta delivered spontaneously in Schultze presentation with trailing membranes. A marginal cord insertion was noted. The lacerations were repaired in the usual fashion. There was excellent hemostasis And delivery counts correct. Baby Date of : 04/23/24 Time of : 21:54 Gestational Age by Date: 39 Infant gender: Female Weight (pounds): 6 Weight (ounces): 4 presentation: vertex position: Left Occiput Anterior Placenta delivery description: Spontaneous and Abnormal Configuration (marginal cord insertion) Cord Vessel Description: 3 Vessels, Nuchal Cord (x 2) and Delayed Cord Clamping score one minute: 8 score five minutes: 9
--- NOTE | 2024-04-23 20:21 | P.DS_ITS ---
DS: Admitting Diagnosis Discharge Date 04/25/24 Admitting Diagnosis 23 y.o. . IOL for gHTN DS: Discharge Diagnosis Discharge Diagnosis (1) Gestational hypertension: Code(s): O13.9 - Gestational [-induced] hypertension without significant proteinuria, unspecified trimester Status: Acute (2) growth restriction antepartum: Code(s): O36.5990 - Maternal care for other known or suspected poor growth, unspecified trimester, not applicable or unspecified Status: Acute (3) Anxiety during : Code(s): O99.340 - Other mental disorders complicating , unspecified trimester; F41.9 - Anxiety disorder, unspecified Status: Acute (4) Encounter for induction of labor: Code(s): Z34.90 - Encounter for supervision of normal , unspecified, unspecified trimester Status: Acute OB - DS: Summary Hospital Course Hospital Course: Uncomplicated OB Procedures : NST, PIH Mgmt and Ultrasound OB Procedures Intrapartum: Spontaneous Vag Delivery OB Procedures: : None Peripartum Data Delivery Method: Natural Vaginal Laceration Description: Perineal - 2nd Degree, Vaginal and Labial Episiotomy description: None complications: none Status at Discharge Functional status at discharge: independent ambulation Overall status at discharge: patient is progressing back to baseline Time Spent with Patient Time attestation: Total time spent providing and/or coordinating discharge services: Exam Narrative: Alert and oriented. Mood is pleasant and cooperative. Perineum with minimal edema. Fundus firm and below umbilicus. Const: General: cooperative, healthy appearing, no acute distress and alert Orientation/consciousness: patient oriented x3 Limitations: no limitations Resp: Effort & Inspection: normal respiratory effort and able to speak in complete sentences Cardio: Rate: regular rate GI: Inspection: normal to inspection GI Palp: Yes Soft to palpation : General: Yes bladder normal to palpation External Female Exam: other (lochia WNL) Bimanual exam- vagina & uterus: bladder normal to palpation Other: Fundus firm and below U Skin: General skin exam: normal color and no rashes or lesions noted Neuro: General: patient oriented x3 and moves all extremities Cognition (Neuro): normal cognition Speech: normal speech Sensory Exam: normal sensation Extrem: General: normal to inspection and no calf tenderness Right lower extremity: edema Details: pitting and 2+ Left lower extremity: edema Details: pitting and 2+ Psych: Appearance: grossly normal Mental Status: mental status grossly normal Affect: normal affect Thought process: Normal thought process present Discharge Plan Discharge Attending physician on discharge: Linda Leyva Consulting providers: Any Garduno Discharging Clinician: Any Garduno Anticipated Discharge Date/Time: 04/25/24 11:00 Patient Disposition: Home, Self-Care Activity: may shower and pelvic rest Diet: as tolerated and regular Wound Care Instructions: follow printed instructions Discharge Instructions: Continue taking your vitamin and any other supplements as previously directed (Examples: Iron, Vitamin D). You may take Tylenol 1000mg over the counter every 6 hours as needed for pain. Do not exceed 4000mg of Tylenol daily. You may continue using tucks pads and dermoplast spray if needed for a few more days. Depression * Notify provider for signs or symptoms. These may include- * Feelings: Feeling anxious, angry, hopeless, guilt, or loss of interest/pleasure in activities you normally enjoy. Mood swings or panic attacks. * General: Extreme fatigue, loss of your appetite, feeling restless. Crying excessively, irritability, insomnia * Psychological: Lack of concentration, depression or fear, unwanted thoughts * Weight: Significant gain or loss * Safety: Thoughts of harming yourself or your baby. Blood Pressure Instructions * Check your BP at home daily. Keep a log and bring to your next visit. * Report any BP readings over 160/110 to provider immediately. (Please call if either number is elevated) * Headache that does not improve with 2 Extra Strength Tylenol (you may take Ibuprofen if not ) * Visual changes such as blurred vision or flashes of light * Pain under the right breast * Significant increase in swelling with any of the above symptoms * Make sure you are sitting for at least 5 minutes before checking your blood pressure. Keep legs uncrossed and avoid talking while taking your blood pressure. Patient Instructions: Antibiotic Form Stand Alone Forms: General Discharge Information Follow-up/Referrals: Any Garduno, CNM [Certified Nurse Social Security Assessor] - (BP check in office in one week) Discharge Medications: New ibuprofen 600 mg tablet 600 mg PO Q6H PRN (Reason: pain) Qty: 30 0RF docusate sodium [Colace] 100 mg capsule 100 mg PO BID Qty: 60 0RF norethindrone (contraceptive) 0.35 mg tablet 0.35 mg PO DAILY Qty: 84 4RF Rx Instructions: Start 4 weeks . Use backup 1st month Continued PNV cmb#95-ferrous fumarate-FA [] 28 mg iron- 800 mcg Tablet 1 tablet PO DAILY Discontinued nifedipine 30 mg tablet extended release 30 mg PO DAILY aspirin 81 mg Tablet,Chewable 81 mg PO DAILY ferrous sulfate [Slow Fe] 142 mg (45 mg iron) Tablet Extended Release 142 mg PO DAILY Date of admission: 04/22/24 17:08 Primary Care Provider: UNKNOWN,DOCTOR Admitting Provider: Linda Leyva Attending physician on admission: Linda Leyva Condition: Stable
[2024-04-23] MEDS: OXYTOCIN 30 UNITS/NS 500 ML 30 UNITS/500 ML BAG 125 UNITS IV CONT (22:26)
[2024-04-23] MEDS: ACETAMINOPHEN 325 MG TABLET 650 MG PO (23:15)
[2024-04-23] MEDS: WITCH HAZEL 40 PADS 1 PAD TOPICAL (23:15)
[2024-04-23] MEDS: BENZOCAINE 20% AER SPR (*SP) 56 GM CAN 1 SPRAY TOPICAL (23:15)
[2024-04-24] VITALS (9 sets, daily range): BP systolic 107–133; BP diastolic 56–84; PULSE 60–71; RESP 16–18; TEMP 36.6–36.9; O2SAT 97–100
--- NOTE | 2024-04-24 00:50 | OBPPTRN ---
Patient transferred to post room #280 via wheelchair. Support person present. Oriented to unit, room, information board, rooming in, admission packet and security measures. Patient verbalizes understanding.
[2024-04-24] MEDS: IBUPROFEN 600 MG TABLET PO ×2 (04:51→22:50)
[2024-04-24 05:24] LABS: Hematocrit 35.6 % (37.0-47.0); Hemoglobin 11.6 g/dL (12.0-15.0)
--- NOTE | 2024-04-24 07:44 | PM.OBPNVD ---
OB - PN: Subj Subjective Date/time seen: 04/24/24 07:30 Interval history: Post Day 1 from . Doing well. Urinating without difficulty. Denies passing any large clots. Denies dizziness with ambulating. Tolerating po food and fluids. Bonding with . BPs WNL. No CALDERON, visual changes, or RUQ pain Patient comments: pain well controlled baby status: doing well and nursing well feeding status: exclusively breast feeding OB - PN: Obj Data Labs 04/24/24 04:52 04/22/24 17:19 Labs: Laboratory Results - last 24 hr 04/24/24 04:52 Hgb 11.6 L Hct 35.6 L OB - PN A/P Assessment and Plan (1) Gestational hypertension: Code(s): O13.9 - Gestational [-induced] hypertension without significant proteinuria, unspecified trimester Status: Acute (2) Anxiety during : Code(s): O99.340 - Other mental disorders complicating , unspecified trimester; F41.9 - Anxiety disorder, unspecified Status: Acute (3) (normal spontaneous vaginal delivery): Code(s): O80 - Encounter for full-term uncomplicated delivery Status: Acute Plan day: 1 Plan: routine care Time Spent With Patient Time: Total time spent is greater than 50% in coordination of care (as documented) at patient's floor/unit and/or counseling patient: Review of Systems Review of Systems: All systems reviewed & are unremarkable except as noted in HPI and below Exam Narrative: Alert and oriented. Mood is pleasant and cooperative. Perineum with minimal edema. Fundus firm and below umbilicus. Const: General: cooperative, healthy appearing, no acute distress and alert Orientation/consciousness: patient oriented x3 Limitations: no limitations Resp: Effort & Inspection: normal respiratory effort and able to speak in complete sentences Cardio: Rate: regular rate GI: Inspection: normal to inspection GI Palp: Yes Soft to palpation : General: Yes bladder normal to palpation External Female Exam: other (lochia WNL) Bimanual exam- vagina & uterus: bladder normal to palpation Other: Fundus firm and below U Skin: General skin exam: normal color and no rashes or lesions noted Neuro: General: patient oriented x3 and moves all extremities Cognition (Neuro): normal cognition Speech: normal speech Sensory Exam: normal sensation Extrem: General: normal to inspection and no calf tenderness Right lower extremity: edema (2+ pitting) Left lower extremity: edema (2+ pitting) Psych: Appearance: grossly normal Mental Status: mental status grossly normal Affect: normal affect Thought process: Normal thought process present
[2024-04-24] MEDS: MULTIVIT/MIN/PREN/FOL AC/IRON TABLET 1 TAB PO (07:56)
[2024-04-24] MEDS: DOCUSATE SODIUM 100 MG CAPSULE PO (07:56)
[2024-04-24] MEDS: FERROUS SULFATE DRIED 142 MG TABCR PO (07:56)
--- NOTE | 2024-04-24 08:00 | PC.NURSE ---
0725- Patient called out for assistance. Mom says they have been trying to feed for a half hour. Baby has been sleepy and has the hiccups. Encouraged parents to wait a half hour and observe for feeding cues. Parents will try again soon and will call for assistance as needed. [phone]- Primary RN called to say baby is showing feeding cues and mom is ready to try to feed. Upon entering the room Dad is holding baby and mom is reading the menu. Asked if they were ready to try to feed and mom said she could try. Baby was showing feeding cues and putting her hands in her mouth. Encouraged parents to recognize the cues as a signal that baby is ready to eat. Mom placed baby in football hold but was not very aggressive with placing baby close to the breast or holding her breast to facilitate the latch. Assisted mom to bring baby close to the breast and place the nipple opposite the nose. Baby was eager and opened wide. It took several attempts to get a good latch that baby was able to maintain. Mom states that it is tender, she has a blister on the left nipple and a bruise on the areola, as well as what appears to be a skin take to the right of the left nipple on the areola. Baby suckled consistently with some intermittent stimulation needed. Encouraged mom to keep baby going for 10-15 minutes and then to offer the other breast if baby seems interested. Mom will also air dry her nipples and apply lanolin after feedings. Mom agrees and will call for assistance as needed. Reported to the primary RN.
--- NOTE | 2024-04-24 09:30 | WPDANLDPN2 ---
Anes-Prog Note L&D Date/Time: 04/24/24 09:30 Comfortable throughout: labor and delivery Neuraxial method: epidural Epidural/Spinal procedure site: clean & non-tender Neuro status: Neuro function grossly intact. Cardiovascular status: normal Respiratory status: normal Airway patency: baseline Mental status: baseline Post-Op hydration status: normal Vital Signs: Last Vital Signs Temp 36.8 C 04/24/24 07:35 Pulse 62 04/24/24 07:35 Resp 16 04/24/24 07:35 BP 116/68 04/24/24 07:35 Pulse Ox 97 04/24/24 07:35 O2 Del Method Room Air 04/24/24 01:00 Pain score (VAS): 06/15 I/O: Intake & Output 04/23/24 04/24/24 04/24/24 23:59 07:59 15:59 Output Total 175 80 600 Balance -175 -80 -600 Post-procedural complaints: none Patient feedback: Patient satisfied with anesthetic care.
--- NOTE | 2024-04-24 11:15 | PC.NURSE ---
Assisted mother with latching to the [right] breast in [football] position. She needs assistance with positioning and holding baby. [was] able to maintain an appropriate latch. Mother [complains of] nipple pain/discomfort [with initial latch on]. Encouraged mother to keep awake and nursing at the breast for 15 minutes. Mother taught to listen for infant swallowing during feedings. Reviewed using the blue feeding sheet to record time and duration of feeding. Mother voiced understanding of the education shared, to call for assistance if the does not latch or if there is discomfort with . name/number on communication board. Reported to the Primary RN.?
--- NOTE | 2024-04-24 14:25 | PC.NURSE ---
Assisted mother to latch in cross cradle hold on the left breast. Baby was eager to latch and needed some stimulation to stay awake and sucking. Instructed mom on positioning infant tummy to tummy and how to hold her breast with a C hold. Mom was able to keep baby at the breast independently after achieving a good latch. Reported to primary RN.
--- NOTE | 2024-04-24 16:40 | PC.NURSE ---
Parents called out for assistance. Mom was concerned that baby was crying and turning red. Assured her that these are normal behaviors. Baby was eager to feed and we had to calm her before she was able to latch to the left breast in cross cradle hold. Mom is handling baby with a bit more ease but still needs max assist to latch. Once baby obtains a deep latch she maintains and suckles with ease. Discussed with mom the early feeding cues to watch for and how to calm baby with skin to skin before feeding if she is fussy. Mom also has her breast pump from home and would like to review how to use it before discharge. We will review the pump tomorrow before discharge. Parents also educated on cluster feeding and infant being more awake and hungry overnight. Reported to primary RN.
[2024-04-25 04:33] VITALS: BP 120/78; PULSE 54; RESP 16; TEMP 36.7; O2SAT 97
[2024-04-25 08:00] VITALS: BP 124/65; PULSE 57; RESP 16; TEMP 36.5; O2SAT 98
--- NOTE | 2024-04-25 08:25 | PM.OBPNVD ---
OB - PN: Subj Subjective Date/time seen: 04/25/24 0 Interval history: Post Day 2 from . Doing well. Urinating without difficulty. Denies passing any large clots. Denies dizziness with ambulating. Tolerating po food and fluids. Bonding with infant. BPs WNL. No CALDERON, visual changes, or RUQ pain. Having some nipple tenderness. Patient comments: pain well controlled baby status: nursing well [facility] feeding status: exclusively breast feeding OB - PN: Obj Data Labs 04/24/24 04:52 04/22/24 17:19 OB - PN A/P Assessment and Plan (1) (normal spontaneous vaginal delivery): Code(s): O80 - Encounter for full-term uncomplicated delivery Status: Acute (2) Gestational hypertension: Code(s): O13.9 - Gestational [-induced] hypertension without significant proteinuria, unspecified trimester Status: Acute Assessment and Plan: BPs WNL. Plan BP check at f/up and 1 week (3) Anxiety during : Code(s): O99.340 - Other mental disorders complicating , unspecified trimester; F41.9 - Anxiety disorder, unspecified Status: Acute Plan day: 2 Plan: discharge home Time Spent With Patient Time: Total time spent is greater than 50% in coordination of care (as documented) at patient's floor/unit and/or counseling patient: Review of Systems Review of Systems: All systems reviewed & are unremarkable except as noted in HPI and below Exam Narrative: Alert and oriented. Mood is pleasant and cooperative. Perineum with minimal edema. Fundus firm and below umbilicus. Const: General: cooperative, healthy appearing, no acute distress and alert Orientation/consciousness: patient oriented x3 Limitations: no limitations Resp: Effort & Inspection: normal respiratory effort and able to speak in complete sentences Cardio: Rate: regular rate GI: Inspection: normal to inspection GI Palp: Yes Soft to palpation : General: Yes bladder normal to palpation External Female Exam: other (lochia WNL) Bimanual exam- vagina & uterus: bladder normal to palpation Other: Fundus firm and below U Skin: General skin exam: normal color and no rashes or lesions noted Neuro: General: patient oriented x3 and moves all extremities Cognition (Neuro): normal cognition Speech: normal speech Sensory Exam: normal sensation Extrem: General: normal to inspection and no calf tenderness Right lower extremity: edema Details: pitting and 2+ Left lower extremity: edema Details: pitting and 2+ Psych: Appearance: grossly normal Mental Status: mental status grossly normal Affect: normal affect Thought process: Normal thought process present
--- NOTE | 2024-04-25 09:00 | PC.NURSE ---
Went to room to discuss patient's desire to breastfeed or bottle feed. Mother began pumping last night and bottle fed all night by recommendation of the night RN. Patient does state that she wants to continue to put baby to breast. Assisted mother with latching to the [right] breast in [football] position. [was] able to maintain an appropriate latch. Mother [complains of] nipple pain [throughout feeding]. The latch is deep and baby is sucking appropriately. Mom has blisters on both nipples and is using lanolin. Hydrogel pads given and reviewed use with patient and her mother. Encouraged mother to keep awake and nursing at the breast for 15 minutes. Mother taught to listen for swallowing during feedings. Advised parents that baby may act hungry after since she has been used to the greater volume of formula. Discussed supplementing with 10-15ml of formula after if desired. Reviewed using the blue feeding sheet to record time and duration of feeding. Mother voiced understanding of the education shared, to call for assistance if the infant does not latch or if there is discomfort with . name/number on communication board. Reported to the Primary RN.?
[2024-04-25] MEDS: MULTIVIT/MIN/PREN/FOL AC/IRON TABLET 1 TAB PO (09:44)
[2024-04-25] MEDS: DOCUSATE SODIUM 100 MG CAPSULE PO (09:44)
[2024-04-25] MEDS: FERROUS SULFATE DRIED 142 MG TABCR PO (09:44)
--- NOTE | 2024-04-25 10:30 | PC.NURSE ---
Consulted with mother regarding discharge and her comfort with feeding baby at home. Mother is feeding appropriately for growth of and understands stimulating to eat if needed. has had appropriate feedings in the last 24 hours meets the outcomes for weight, output, blood sugar and jaundice at this time. Reinforced understanding of milk production, transition of milk, signs of adequate intake, transition of stool, prevention/relief of engorgement, plugged ducts, mastitis, responsive watching for feeding cues, the different methods of stimulating to breastfeed 1-3 hours after the start of the last feeding, community resources, and when to call a provider using the resource of the feeding sheet along with the mom and baby guide. Reviewed regular breast stimulation if baby doesn't breastfeed to maintain her milk supply. We were going to review her pump but she forgot some pieces but did use the Medela pump here and is familiar with what pumping should feel like. Mother voiced understanding of the information shared, is confident to continue effectively her infant at home, when to call for assistance, denies any additional assistance or education at this time. Reported to the Primary RN.
--- NOTE | 2024-04-25 11:26 | PC.NURSE ---
Patient viewed the discharge video Mother & Baby Care, The First Two Weeks . Patient was given the opportunity and encouraged to ask questions. Patient verbalized understanding of information shared and has been given the mother/baby guide for home reference.
== END 2024-04-25 12:13 | disposition home or self-care (01) | DRG 807 ==
LOC: ANHLDR 04-23 22:59 → ANHOB2 04-24 00:56
PROVIDERS: Advanced Practice Midwife; Admitting Provider Obstetrics & Gynecology Gynecology; Visit Provider Obstetrics & Gynecology Gynecology
DX: O13.4 Gestational [pregnancy-induced] hypertension without significant proteinuria, complicating childbirth (principal); Z37.0 Single live birth; Z3A.39 39 weeks gestation of pregnancy; O36.5930 Maternal care for other known or suspected poor fetal growth, third trimester, not applicable or unspecified; O69.81X0 Labor and delivery complicated by cord around neck, without compression, not applicable or unspecified; O70.1 Second degree perineal laceration during delivery; O70.0 First degree perineal laceration during delivery; O36.8330 Maternal care for abnormalities of the fetal heart rate or rhythm, third trimester, not applicable or unspecified; O99.344 Other mental disorders complicating childbirth; F41.9 Anxiety disorder, unspecified
CPT/HCPCS: 36415; 80053; 84550; 85014; 85018; 85025; 86592; 86703; 86850; 86900; 86901; 88307; A9270; G0432; J2405; J2590; J2795; J3010; J7030; J7120